=== PATIENT | male | born 2000 | race Native Hawaiian/Other Pacific Islander ===

== ENCOUNTER 2022-02-24 11:26 | Emergency (ER) | payer OTHER, SELFPAY ==
[2022-02-24 11:35] VITALS: PULSE 96; RESP 18; TEMP 36.6; O2SAT 98; BMI 27.5
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
[2022-02-24 13:54] LABS: COVID-19 Test Negative (Negative); IDNOW Serial# 16C4AD1C
[2022-02-24 13:59] LABS: Amphetamine Screen Urine Not Detected (Not Detect); Barbiturates, Urine Not Detected (Not Detect); Benzodiazepines Screen Urine Not Detected (Not Detect); Cannabinoid Screen Urine Not Detected (Not Detect); Cocaine Screen Urine Not Detected (Not Detect); Fentanyl, urine Not Detected (Not Detect); Opiate Screen Urine Not Detected (Not Detect); Phencyclidine Screen Urine Not Detected (Not Detect)
--- NOTE | 2022-02-24 17:38 | PC.NURSE ---
clients aunt who came earlier with patient, phone number [phone]
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
--- NOTE | 2022-02-25 06:39 | PC.NURSE ---
Patient slept through the night, no distress observed/reported, behavior appropriate, patient is not on any medication at this time, patient was assessed by care team with plan to discharge back to his mother, please refer to care team's note for further details, VSS, will continue to monitor.
--- NOTE | 2022-02-25 07:56 | PC.NURSE ---
patient appears to remain asleep at present respirations are even and unlabored, patient appears in no distress
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
--- NOTE | 2022-02-25 12:55 | MHC.CARE ---
Pt was informed that a referral was made to [facility]. Pt reports that his phone is not receiving any calls but can text. SW provided PT with demographic information for [facility] and Care team. Pt discharged back home.
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
== END 2022-02-25 12:44 | disposition home or self-care (01) ==
PROVIDERS: Physician Assistant; Emergency Provider Emergency Medicine
DX: F41.1 Generalized anxiety disorder (principal); F43.0 Acute stress reaction; Z79.899 Other long term (current) drug therapy; Z20.822 Contact with and (suspected) exposure to COVID-19
CPT/HCPCS: 80307; 87635; 99284

== ENCOUNTER 2023-05-19 13:52 | Emergency (ER) | payer OTHER, SELFPAY ==
--- NOTE | ~2023-05-19 | XR_ITS ---
EXAMINATION: XR ANKLE, LEFT CLINICAL INFORMATION: Fall COMPARISON: None available. TECHNIQUE: AP, lateral, and mortise views of the left ankle. FINDINGS: The bones and soft tissues are normal. No fracture. Alignment is anatomic. Joint spaces are maintained. No joint effusion.
[2023-05-19 14:00] VITALS: BP 111/72; PULSE 81; RESP 18; TEMP 36.8; O2SAT 99; BMI 28.6
[2023-05-19 14:05] VITALS: BP 110/68; PULSE 74; O2SAT 100
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
[2023-05-19 15:13] VITALS: BP 115/56; PULSE 80; RESP 17; TEMP 36.5; O2SAT 100
== END 2023-05-19 17:48 | disposition home or self-care (01) ==
PROVIDERS: Emergency Provider Emergency Medicine Emergency Medical Services
DX: S90.32XA Contusion of left foot, initial encounter (principal); S90.812A Abrasion, left foot, initial encounter; S60.511A Abrasion of right hand, initial encounter; S80.211A Abrasion, right knee, initial encounter; V28.09XA Other motorcycle driver injured in noncollision transport accident in nontraffic accident, initial encounter; Y93.89 Activity, other specified; Y92.414 Local residential or business street as the place of occurrence of the external cause; Y99.9 Unspecified external cause status
CPT/HCPCS: 73600; 90471; 90715; 99283; 99284

== ENCOUNTER 2023-10-31 17:40 | Emergency (ER) | payer OTHER, SELFPAY ==
[2023-10-31 18:05] VITALS: BP 131/94; PULSE 91; RESP 18; TEMP 36.7; O2SAT 98; BMI 26.5
--- NOTE | 2023-10-31 18:05 | ED_ITS ---
HPI - Ear Problem General Chief complaint: Ear Problems Stated complaint: RT ear wax blockage Time Seen by Provider: 10/31/23 18:11 Source: patient, RN notes reviewed and old records reviewed Mode of arrival: ambulatory History of Present Illness HPI Narrative: 23 yo M w/PMHx Asthma, ADHD, presenting to the ED complaining of right ear tinnitus x years, with some right ear discomfort and noted earwax by mother. Denies drainage from ear, fever/chills, sore throat Related Data Previous Rx's Medication Instructions Recorded amoxicillin 875 mg-potassium 1 tab PO BID 7 days #14 tabs 10/31/23 clavulanate 125 mg tablet Allergies Allergy/AdvReac Type Severity Reaction Status Date / Time No Known Allergies Allergy Verified 10/31/23 18:05 [No Known Allergies*] Review of Systems Review of Systems: Constitutional: No Fever, No Chills ENT/Mouth: + Ear Pain, +tinnitis, No Nasal Congestion, No Sinus Pain, No Hoarseness, No sore throat, No Rhinorrhea, No Swallowing Difficulty Cardiovascular: No Chest Pain, No SOB Respiratory: No Cough, No Sputum, No Wheezing Gastrointestinal: No Nausea, No Vomiting, No Abdominal pain Musculoskeletal: No joint pain, No Myalgias, No Joint Swelling Skin: No Skin Lesions, No rash Neuro: No Weakness Yes all other systems are reviewed and are negative Constitutional: Constitutional: Reports as per [facility] Past Medical History Attestation statement: The following information was validated with the patient. Source: old records reviewed Medical History Asthma ADHD Surgical History No pertinent past surgical history Family History Family History Mother No problems noted. Social History Social History Household Members: Family Physical Exam Vital Signs: Vital Signs: Last Vital Signs Temp 98.1 F 10/31/23 18:05 Pulse 91 10/31/23 18:05 Resp 18 10/31/23 18:05 BP 131/94 H 10/31/23 18:05 Pulse Ox 98 10/31/23 18:05 O2 Del Method Room Air 12/13/23 18:05 BMI result Body Mass Index 26.5 Const: General: cooperative, healthy appearing and no acute distress Orientation/consciousness: patient oriented x3 Limitations: no limitations HEENT: Head: Yes normal to inspection and Yes atraumatic Ears: hearing grossly normal bilaterally, external ears normal, mastoids normal, TM abnormal bulging on the right and erythematous on the right and other (Cerumen noted to right external ear canal) General nose exam: Normal external nose present Face and sinus: Yes normal facial exam Eyes: General: appearance normal, both eyes and all related structures EOM: EOMs intact bilaterally Neck: Neck: Yes normal visual inspection and Yes no meningeal signs Resp: Effort & Inspection: normal respiratory effort, no respiratory distress and no stridor Cardio: Rate: regular rate Skin: Rashes: no rashes Wounds: no wounds Neuro: General: patient oriented x3, tone normal and no meningeal signs Cranial nerves: Yes CN's II-XII intact bilaterally Gait exam (Neuro): Normal gait present Extrem: General: Yes normal to inspection Procedures Ear Wax Removal Right Ear: Results: Re-examined: cerumen removed completely TM Examination: TM(s) intact, normal appearance Ear Canal Exam: atraumatic Patient Tolerated Procedure: well Complications: no problems Technique: ear canal curetted Medical Decision Making Medical Decision Making MDM Narrative: 23 yo M w/PMHx Asthma, ADHD, presenting to the ED complaining of right ear tinnitus x years, with some right ear discomfort and noted earwax by mother. On exam vital signs stable, NAD, nontoxic appearing, right TM with bulging and erythema. Erect noted external ear canal without total impaction. Ear wax removed with curette without complication. Mastoids WNL. Concern for otitis media/cerumen. Low suspicion for chronic otitis externa, ICH/mass Plan: P.o. antibiotics Please refer to course for remaining clinical decision making, interpretation of labs/imaging results, and discussions with consultants and/or family members. Results discussed with patient including worrisome signs and symptoms and strict return precautions, and when to return to the emergency department. They verbalized understanding and feel safe for discharge at this time. Differential Diagnosis Differential Diagnoses: The differential diagnosis associated with the presentation includes As above External Record Review External record reviewed: Inpatient record, Office record, Outpatient record, Prior outpatient labs, Prior outpatient radiology, Primary care record and Outside ED record Tests considered The following testing was considered but not selected: As above Prescription Management I considered prescription management with: Pain Medication and Antibiotic Discharge Plan Discharge Clinical Impression: Otitis media Patient Disposition: Home, Self-Care Instructions: Ear Infection (ED) Additional Instructions: augmentin is an antibiotic please take as prescribed Follow-up with your doctor and ENT specialist Is symptoms persist or worsen return to the ED Prescriptions: New amoxicillin-pot clavulanate 875-125 mg tablet 1 tab PO BID 7 Days Qty: 14 0RF Referrals: Fernando Olivera [Physician] - Physician,Unknown J [Primary Care Provider] -
== END 2023-10-31 18:26 | disposition home or self-care (01) ==
PROVIDERS: Emergency Provider Emergency Medicine
DX: H66.91 Otitis media, unspecified, right ear (principal); H93.11 Tinnitus, right ear
CPT/HCPCS: 99282; 99283

== ENCOUNTER 2023-12-26 14:02 | Emergency (ER) | payer OTHER, SELFPAY ==
[2023-12-26 14:42] VITALS: BP 121/48; PULSE 82; RESP 18; TEMP 36.4; O2SAT 98; BMI 25.6
--- NOTE | 2023-12-26 14:43 | ED.ANIMALBIT ---
HPI - Animal Bite General Chief Complaint: Animal Bite Stated Complaint: Animal bite Time Seen by Provider: 12/26/23 22:05 Source: patient Mode of arrival: ambulatory Limitations: no limitations History of Present Illness HPI narrative: 23-year-old male presents to ED for right calf dog bite. Patient states his dog bit him middle of the night. Patient was sleepwalking and dog saw him thought was intruder and bit him in the right calf. Mother states patient does have a history of sleepwalking. Mother states dogs up-to-date with rabies Related Data Previous Rx's Medication Instructions Recorded amoxicillin 875 mg-potassium 1 tab PO BID 7 days #14 tabs 11/01/23 clavulanate 125 mg tablet amoxicillin 875 mg-potassium 1 tab PO Q12H 10 days #20 tabs 12/26/23 clavulanate 125 mg tablet Allergies Allergy/AdvReac Type Severity Reaction Status Date / Time No Known Allergies Allergy Verified 12/26/23 14:42 [No Known Allergies*] Review of Systems Review of Systems: right calf dog bite Yes all other systems are reviewed and are negative [facility] Past Medical History Medical History Asthma ADHD Surgical History No pertinent past surgical history Family History Family History Mother No problems noted. Social History Social History Household Members: Family Advance Directives: No Advance Directives Information Provided: No Physical Exam ED Vital Signs: Vital Signs - 24 hr 12/26/23 14:42 12/27/23 00:02 Temperature 97.6 F 98.6 F Pulse Rate 82 71 Respiratory Rate 18 20 Blood Pressure 121/48 L 118/64 Pulse Oximetry 98 98 Oxygen Delivery Method Room Air Room Air BMI result Body Mass Index 25.6 Const General: cooperative, healthy appearing, comfortable, no acute distress, well developed, alert, awake and Physically active Orientation/consciousness: oriented to person, oriented to place, oriented to time and patient oriented x3 HENMT Head: Yes normal to inspection, Yes No palpable skull fracture present, Yes normocephalic and Yes atraumatic Eyes General: appearance normal, both eyes and all related structures Neck Neck: Yes normal visual inspection, Yes full ROM, Yes no lymphadenopathy, Yes no meningeal signs, Yes trachea midline, Yes supple, No anterior neck swelling and No tender Chest Chest palpation & inspection: normal inspection of the chest and normal palpation of entire chest wall Resp Effort & Inspection: normal respiratory effort and able to speak in complete sentences Auscultation: clear to auscultation bilaterally Cardio Jugular venous distension: no JVD Heart sounds: S1 normal heart sound present and S2 normal heart sound present GI Inspection: Yes normal to inspection Palpation (GI): Soft to palpation, not firm, nontender, no guarding and not rigid General: Yes no CVA tenderness Back/Spine/Pelvis Back: no CVA tenderness and No back tenderness Skin General skin exam: no rashes or lesions noted, elasticity normal and turgor normal Neuro General: oriented to person, oriented to place, oriented to time, patient oriented x3, gait normal, tone normal, moves all extremities, Normal light touch and pain sensation, no meningeal signs, no focal motor deficits, CN's II-XI intact bilaterally and normal sensation to monofilament Extrem General: Yes normal to inspection, Yes full ROM and Yes capillary refill normal Knee images: 1. Small bite. Negative for active bleeding. Rest of extremity normal. Odor/neuro/vascular exam intact. Psych Appearance: grossly normal, well kempt and not disheveled Course Course Course Narrative: RME:?23 year old male here with dog bite to right calf occurring last night. states his dog bit his right calf while he was having a night terror. Dog is adopted, unsure of vaccine status however will call mom to try and obtain information. no symptoms at the time. plan for irrigation, rabies vaccine, abx Full HPI, ROS and PE to be performed by the primary ED provider. Medical Decision Making Medical Decision Making MDM Narrative: 23 Yold male with Dog bite to right calf. his dog bit him. Dog uptodate with rabies. Patient educated on necessity for antibiotics. Patient discharged antibiotics. Patient given information for sleep Medicine with [facility] for follow-up. Patient and mother informed to return to the ED immediately if there is any swelling, redness, pus discharge, foul odor, fever, or chills. Patient explained worrisome sign. No indication for rabies vaccine Differential Diagnosis Differential Diagnoses: The differential diagnosis associated with the presentation includes (Dog bite) Admission/Observation Consideration of admission/observation: Escalation of care including admission/observation considered Independent Historian Clinical information obtained from an independent historian. History obtained from or confirmed by: Parent (Mother) External Record Review External record reviewed: Other (Previous visit) Prescription Management I considered prescription management with: Pain Medication Discharge Plan Discharge Clinical Impression: Dog bite Patient Disposition: Home, Self-Care Instructions: Animal Bite (ED) Additional Instructions: Return to the ED for any redness, swelling, pus discharge, foul odor, fever, chills, or any other concerning symptoms. Please follow-up with primary care provider. [facility] Sleep Medicine [facility], [address] [place], [place] [id number] [phone]. For sleep walking Prescriptions: New amoxicillin-pot clavulanate 875-125 mg tablet 1 tab PO Q12H 10 Days Qty: 20 0RF No Action amoxicillin-pot clavulanate 875-125 mg tablet 1 tab PO BID 7 Days Qty: 14 0RF Stand Alone Forms: Work/School Release Interventions: ED Discharge Assessment Last Done: 12/27/23 00:06 Discharge Date/Time: 12/27/23 00:07 Print Language: [place]
--- NOTE | 2023-12-26 22:22 | PC.NURSE ---
pt refused to give information about the dog in fear of dog being put down. Claudia nelson RN called to bedside and able to reassure pt.
[2023-12-27 00:02] VITALS: BP 118/64; PULSE 71; RESP 20; TEMP 37; O2SAT 98
== END 2023-12-27 00:07 | disposition home or self-care (01) ==
PROVIDERS: Emergency Provider Student in an Organized Health Care Education/Training Program
DX: S81.851A Open bite, right lower leg, initial encounter (principal); W54.0XXA Bitten by dog, initial encounter; Y93.89 Activity, other specified; Y92.019 Unspecified place in single-family (private) house as the place of occurrence of the external cause; Y99.9 Unspecified external cause status
CPT/HCPCS: 99283; 99284

== ENCOUNTER 2024-01-21 14:30 | Emergency (ER) | payer OTHER, SELFPAY ==
--- NOTE | ~2024-01-21 | CT_ITS ---
EXAMINATION: CT ABDOMEN AND PELVIS WITHOUT CONTRAST CLINICAL INFORMATION: Abdominal pain radiating to back COMPARISON: None available. TECHNIQUE: Multidetector volumetric imaging was performed from the superior aspect of the liver through the pubic symphysis. Sagittal and coronal reformatted images were obtained on the technologist's workstation. This CT examination was performed using dose optimization techniques as appropriate, variously including the following: *Automated exposure control *Adjustment of mA and/or kV according to patient size (this includes techniques or standardized protocols for targeted exams where dose is matched to indication/reason for exam; i.e. extremities or head) *Use of iterative reconstruction technique DLP: 429 mGy-cm FINDINGS: LUNG BASES: The visualized lung bases are unremarkable. LIVER, GALLBLADDER, AND BILIARY TREE: The liver is normal in size, shape, and attenuation. No focal hepatic lesion or biliary ductal dilatation is present. The gallbladder is unremarkable with no evidence of radiopaque gallstones, gallbladder wall thickening, or obvious pericholecystic inflammatory changes. PANCREAS: Unremarkable. SPLEEN: Unremarkable. ADRENAL GLANDS: Unremarkable. KIDNEYS AND URETERS: The kidneys are normal in size, shape, and attenuation. No hydronephrosis, hydroureter, or calculi seen. No perinephric stranding. BLADDER: Unremarkable. GASTROINTESTINAL TRACT: The small and large bowel are unremarkable. The appendix is unremarkable. ABDOMINAL WALL: No significant hernia is appreciated. LYMPH NODES: Normal. VASCULAR: Unremarkable. PELVIC VISCERA: Unremarkable. OSSEOUS STRUCTURES: Unremarkable. CT/CT abdomen pelvis wo IV con IMPRESSION: No significant abnormality. Fleischner guidelines were followed.
[2024-01-21 14:53] VITALS: BP 121/62; PULSE 87; RESP 17; TEMP 36.6; O2SAT 98; BMI 26.6
--- NOTE | 2024-01-21 14:54 | ED.ABDPAIN ---
HPI - Abdominal Pain General Chief Complaint: Abdominal Pain Stated Complaint: L flank pain Time Seen by Provider: 01/21/24 19:39 Source: patient Mode of arrival: ambulatory Limitations: no limitations History of Present Illness HPI narrative: Patient is a 23-year-old male who presents emergency department for evaluation of abdominal pain/back pain. Reports occasional dull aching pain at times felt to the left abdomen other times to the right and at various places amongst his back. Typically lasting a few minutes at a time before self-resolving. He expresses significant anxiety and concern that he may have cancer as his grandmother was recently diagnosed with pancreatic cancer. He denies any associated fevers, chills, nausea, vomiting, chest pain, shortness of breath, recent unintentional weight loss, constipation, diarrhea, genitourinary symptoms, any recent injury. Related Data Previous Rx's Medication Instructions Recorded amoxicillin 875 mg-potassium 1 tab PO BID 7 days #14 tabs 11/01/23 clavulanate 125 mg tablet amoxicillin 875 mg-potassium 1 tab PO Q12H 10 days #20 tabs 12/26/23 clavulanate 125 mg tablet Allergies Allergy/AdvReac Type Severity Reaction Status Date / Time No Known Allergies Allergy Verified 01/21/24 14:53 [No Known Allergies*] Review of Systems Review of Systems Yes all other systems are reviewed and are negative PMFSH Past Medical History Attestation statement: The following information was validated with the patient. Source: old records reviewed Medical History Asthma ADHD Surgical History No pertinent past surgical history Family History Family History Mother No problems noted. Social History Social History Household Members: Family Advance Directives: No Advance Directives Information Provided: No Physical Exam ED Vital Signs: Vital Signs - 24 hr 01/21/24 14:53 01/21/24 19:35 Temperature 98 F 98.1 F Pulse Rate 87 70 Respiratory Rate 17 17 Blood Pressure 121/62 110/63 Pulse Oximetry 98 98 Oxygen Delivery Method Room Air Room Air BMI result Body Mass Index 26.6 Appearance: Alert.?Oriented to person, place and time. No acute distress.?Normal affect. Eyes: Pupils equal, round and reactive to light.? ENT: Pharynx normal.?? Neck: Normal inspection.? Neck supple.?? CVS: Heart sounds normal. Normal heart rate and rhythm.? Pulses normal.?? Respiratory: No respiratory distress.? Lung sounds clear to auscultation bilaterally?? Abdomen: Soft and non-tender. Normoactive bowel sounds. No pulsatile mass.??No CVA tenderness Skin: Skin warm and dry.? Normal skin color.? Normal skin turgor.?? Extremities: No lower extremity edema.? No calf ttp? Neuro: Moves all extremities spontaneously. Sensation intact bilaterally. CN II-XII intact. No focal neuro deficits. Ambulates with normal steady gait. Course Course Course Narrative: RME-18:40pm - 23-year-old male presenting to the ER with complaints of abdominal pain radiating to the back. He is very anxious about this. Reports that he is paranoid for cancer. Reports that his grandmother had pancreatic cancer. He denies any other symptoms related to this. Plan: Labs, UA and a CT scan abdomen pelvis with IV contrast ordered at this time. Patient will be sent back to the waiting room to be evaluated in the ED. Medical Decision Making Medical Decision Making MDM Narrative: Patient is a 23-year-old male presenting to emergency department for evaluation of episodic dull aching abdominal/back pain. Currently is asymptomatic. Abdominal examination is benign. Overall he appears well, nontoxic, afebrile, no tachycardia. No respiratory distress. CBC is without leukocytosis or anemia. CMP is overall unremarkable no MARTÍNEZ or electrolyte derangement, lipase within normal limits. Urinalysis is without evidence of infection or microscopic hematuria. A CT scan of the abdomen and pelvis was obtained prior to my assumption of care which is without acute pathology. At this time feel that he is stable for discharge home and outpatient follow-up with PCP. Discussed return precautions. All questions answered. Differential Diagnosis Differential Diagnoses: The differential diagnosis associated with the presentation includes (Cholecystitis, pancreatitis, colitis, diverticulitis, hydronephrosis, renal colic) Admission/Observation Consideration of admission/observation: Escalation of care including admission/observation considered (See narrative above) Lab Data MDM Lab Attestation statement: I reviewed the patient's lab results. (See narrative above) 01/21/24 19:15 01/21/24 19:15 Labs: Lab Results 01/21/24 Range/Units 19:15 WBC 5.7 (4.8-10.8) X10*3/uL RBC 5.27 (4.60-5.80) X10*6/uL Hgb 14.1 (14.0-18.0) g/dl Hct 43.1 (42.0-52.0) % MCV 81.8 (80.0-98.0) fL MCH 26.8 L (27.0-33.0) pg MCHC 32.7 (31.0-36.0) g/dl RDW 13.0 (11.0-16.0) % Plt Count 205 (160-400) X10*3/uL MPV 11.1 (9.4-12.4) fL Immature Gran % (Auto) 0.2 (0.0-0.4) % Neut % (Auto) 45.8 (45-73) % Lymph % (Auto) 44.5 H (20-40) % [place] % (Auto) 8.0 (2-11) % Eos % (Auto) 1.1 (0-4) % Baso % (Auto) 0.4 (0-2) % Lymph # (Auto) 2.5 (1.2-4.9) X10*3/uL [place] # (Auto) 0.5 (0.1-1.2) X10*3/uL Eos # (Auto) 0.1 (0.0-0.4) X10*3/uL Baso # (Auto) 0.0 (0.0-0.2) X10*3/uL Abs Immat Gran (auto) 0.01 (0.00-0.03) X10*3/uL Absolute Neuts (auto) 2.6 (2.0-8.3) x10*3/uL Absolute Nucleated RBC 0.000 (0.0-0.012) X10*3/uL Nucleated RBC % (auto) 0.0 (0.0-0.2) /100WBC Sodium 141 (135-145) mmol/L Potassium 3.9 (3.3-5.1) mmol/L Chloride 104 (96-108) mmol/L Carbon Dioxide 28 (22-29) mmol/L Anion Gap 13 (12-20) BUN 12 (9-16) mg/dL Creatinine 0.89 (0.5-1.4) mg/dL Estim Creat Clear Calc 122.7 Estimated GFR > 60 Random Glucose 87 (60-115) mg/dL Calcium 9.8 (8.4-10.2) mg/dL Magnesium 2.2 (1.6-2.6) mg/dL Total Bilirubin 1.1 H (0.0-1.0) mg/dL Direct Bilirubin 0.3 (0.0-0.5) mg/dL AST 25 (5-37) U/L ALT 26 (0-40) U/L Alkaline Phosphatase 119 H (39-117) U/L Total Protein 7.8 (6.5-8.0) g/dL Albumin 4.8 (3.5-5.0) g/dL Lipase 27 (8-78) U/L Urine Color Dark Yellow Urine Appearance Clear Urine pH 5.5 (5.0-9.0) Ur Specific Terry >= 1.030 H (1.005-1.025) Urine Protein Trace (Neg-Trace) mg/dL Urine Glucose (UA) Negative (Negative) mg/dL Urine Ketones Trace (Negative) mg/dL Urine Blood Negative (Negative) Urine Nitrite Negative (Negative) Ur Leukocyte Esterase Negative (Negative) Radiology Impression Discussion of test interpretation with radiology: I have reviewed the radiologist's reading. Radiologist Impression: CT/CT abdomen pelvis wo IV con IMPRESSION: No significant abnormality. Fleischner guidelines were followed. Prescription Management I considered prescription management with: Pain Medication (Acetaminophen/ibuprofen) Discharge Plan Discharge Clinical Impression: Abdominal pain Patient Disposition: Home, Self-Care Instructions: Abdominal Pain (ED) Additional Instructions: You can take ibuprofen 200 mg, 3 tablets (600mg) every 6-8 hours as needed for pain, in addition to Tylenol 500 mg, 2 tablets (1,000mg) every 4-6 hours as needed for pain, but not to exceed 3 doses daily (3,000mg).? Follow-up with the primary care doctor for symptoms that persist. Return back to emergency department with any new or worsening symptoms or concerns Prescriptions: No Action amoxicillin-pot clavulanate 875-125 mg tablet 1 tab PO BID 7 Days Qty: 14 0RF amoxicillin-pot clavulanate 875-125 mg tablet 1 tab PO Q12H 10 Days Qty: 20 0RF Referrals: Physician,None [Primary Care Provider] -
--- NOTE | 2024-01-21 19:17 | MHC.EDTECH ---
Patient brought into triage area,labs,and a urine obtained and sent to lab.
[2024-01-21 19:22] LABS: MANUAL DIFF FLAG NO
[2024-01-21 19:23] LABS: Basophils Percent Auto 0.4 % (0-2); Eosinophils Absolute Auto 0.1 X10*3/uL (0.0-0.4); Eosinophils Percent Auto 1.1 % (0-4); Hematocrit 43.1 % (42.0-52.0); Hemoglobin 14.1 g/dl (14.0-18.0); Imm Gran Abs Auto 0.01 X10*3/uL (0.00-0.03); Imm Gran Pct Auto 0.2 % (0.0-0.4); Lymphocytes Absolute Auto 2.5 X10*3/uL (1.2-4.9); Lymphocytes Percent Auto 44.5 % (20-40); Mean Corpuscular HGB Conc 32.7 g/dl (31.0-36.0); Mean Corpuscular Hemoglobin 26.8 pg (27.0-33.0); Mean Corpuscular Volume 81.8 fL (80.0-98.0); Mean Platelet Volume 11.1 fL (9.4-12.4); Monocytes Absolute Auto 0.5 X10*3/uL (0.1-1.2); Neutrophils Absolute Auto 2.6 x10*3/uL (2.0-8.3); Neutrophils Percent Auto 45.8 % (45-73); Platelet Count 205 X10*3/uL (160-400); Red Blood Count 5.27 X10*6/uL (4.60-5.80); White Blood Count 5.7 X10*3/uL (4.8-10.8)
[2024-01-21 19:25] LABS: Appearance Urine Clear; Color Urine Dark Yellow; Glucose Urine UA Negative (Negative); Leukocyte Esterase Urine Negative (Negative); Nitrite Urine Negative (Negative); PH 5.5 (5.0-9.0); Specific Gravity - Urine >= 1.030 (1.005-1.025); Urine Blood Negative (Negative); Urine Ketones Trace mg/dL (Negative); Urine Protein Trace mg/dL (Neg-Trace)
[2024-01-21 19:35] VITALS: BP 110/63; PULSE 70; RESP 17; TEMP 36.7; O2SAT 98
[2024-01-21 19:39] LABS: Alanine Aminotransferase 26 U/L (0-40); Albumin Level 4.8 g/dL (3.5-5.0); Alkaline Phosphatase 119 U/L (39-117); Anion Gap 13 (12-20); Aspartate Amino Transferase 25 U/L (5-37); Bilirubin Direct 0.3 mg/dL (0.0-0.5); Bilirubin Total 1.1 mg/dL (0.0-1.0); Blood Urea Nitrogen 12 mg/dL (9-16); Calcium 9.8 mg/dL (8.4-10.2); Carbon Dioxide 28 mmol/L (22-29); Chloride 104 mmol/L (96-108); Creatinine Clr Calc Pharmacy 122.7; Estimated Glomerular Filt Rate > 60; Glucose Random 87 mg/dL (60-115); Lipase 27 U/L (8-78); Magnesium 2.2 mg/dL (1.6-2.6); Potassium 3.9 mmol/L (3.3-5.1); Sodium 141 mmol/L (135-145); Total Protein 7.8 g/dL (6.5-8.0)
== END 2024-01-21 20:34 | disposition home or self-care (01) ==
PROVIDERS: Physician Assistant Medical; Emergency Provider Emergency Medicine
DX: R10.9 Unspecified abdominal pain (principal); M54.9 Dorsalgia, unspecified
CPT/HCPCS: 36415; 74176; 80053; 81003; 82248; 83690; 83735; 85025; 99283; 99284

== ENCOUNTER 2024-06-19 22:12 | Emergency (ER) | payer OTHER, SELFPAY ==
[2024-06-19 22:18] VITALS: BP 124/66; PULSE 90; O2SAT 99
[2024-06-19 22:22] VITALS: BP 148/77; PULSE 68; RESP 22; TEMP 37.2; O2SAT 99; BMI 26.6
--- NOTE | 2024-06-19 22:28 | ED_ITS ---
HPI - Anxiety General Chief Complaint: Anxiety Stated Complaint: anxiety Time Seen by Provider: 06/19/24 22:17 Source: patient and EMS Mode of arrival: EMS Limitations: no limitations History of Present Illness ED Provider: DEREK RAY narrative: 24 yo male with PMH of recent anxiety due to life stressors or social pressures notes panic attack tonight with sense of impending doom and hyperventilation with EMS resulting in carpopedal spasms and abdominal spasms. He denies recent n/v/d viral illness cramps prior to this. He does not take medications. MD complaint: anxiety Onset (ago): hour(s) (1) Symptoms: extremity numbness/tingling, perioral numbness/tingling, sense of impending doom and muscle cramps Severity: severe Quality: constant Place: home History of similar episodes: Yes Provoking factors: emotional stress and work/job stress Relieving factors: nothing Exacerbating factors: thinking about event Associated symptoms: denies other symptoms Related Data Previous Rx's ?Medication ?Instructions ?Recorded amoxicillin 875 mg-potassium 1 tab PO BID 7 days #14 tabs 11/01/23 clavulanate 125 mg tablet amoxicillin 875 mg-potassium 1 tab PO Q12H 10 days #20 tabs 12/26/23 clavulanate 125 mg tablet hydroxyzine HCl 25 mg tablet 25 mg PO TID PRN anxiety #30 tabs 06/19/24 Allergies Allergy/AdvReac Type Severity Reaction Status Date / Time No Known Allergies Allergy Verified 06/19/24 22:30 [No Known Allergies*] Review of Systems Review of Systems: Constitutional : No Fever, No Chills ENT/Mouth : No Ear Pain, No Nasal Congestion, No sore throat Eyes: No Eye Pain, No Swelling, No Redness Cardiovascular : No Chest Pain, No SOB Respiratory : No Cough, No Sputum, No Dyspnea Gastrointestinal : No Nausea, No Vomiting, No Diarrhea, No Hematochezia, No Melena Genitourinary : No Dysuria, No Urinary Frequency, No Hematuria Musculoskeletal : No Myalgias, pos spasms Skin : No Skin Lesions, No rash Neuro : No Weakness, No Numbness, No Paresthesias, No Dizziness, No Headache Psych : positive Anxiety, positive Depression, no SI/HI All other systems reviewed and are negative [facility] Past Medical History Medical History Asthma ADHD Surgical History No pertinent past surgical history Family History Family History Mother No problems noted. Social History Social History Household Members: Family Smoked in Last 30 Days: No Use of substances other than those prescribed or required for medical reasons: No Advance Directives: No Advance Directives Information Provided: No Physical Exam Vital Signs: Vital Signs: Last Vital Signs Temp 98.9 F 06/19/24 22:22 Pulse 68 06/19/24 22:22 Resp 22 H 06/19/24 22:22 BP 148/77 H 06/19/24 22:22 Pulse Ox 99 06/19/24 22:22 O2 Del Method Room Air 06/19/24 22:22 BMI result Body Mass Index 26.6 Appearance: Alert. Oriented X3. No acute distress. anxious hyperventilating improving carpopedal spasms Eyes: Pupils equal, round and reactive to light. ENT: Pharynx normal. Neck: Normal inspection. Neck supple. CVS: Normal heart rate and rhythm. Pulses normal. Respiratory: No respiratory distress. Breath sounds normal. Abdomen: Soft and nontender. Skin: Skin warm and dry. Normal skin color. Normal skin turgor. Extremities: No lower extremity edema. No calf ttp Neuro: Oriented X 3. No motor deficit. No sensory deficit. Medications Administered Discontinued Medications Generic Name Dose Route Start Last Admin Trade Name Freq PRN Reason Stop Dose Admin Hydroxyzine HCl 50 mg 06/19/24 22:28 06/19/24 22:39 Hydroxyzine Hcl 50 Mg Tablet PO 06/19/24 22:29 50 mg ONCE ONE Administration Medical Decision Making Medical Decision Making MDM Narrative: 24 yo male with PMH of recent anxiety here with panic attack and hyperventilation - carpopedal spasms. No SI. He is improving no recent cramps n/v/d or suspicion he would have lyte abnormality. At this time PO atarax and DC home Differential Diagnosis Differential Diagnoses: The differential diagnosis associated with the presentation includes anxiety, panic attack Admission/Observation Consideration of admission/observation: Escalation of care including admission/observation considered improved stable for DC Independent Historian Clinical information obtained from an independent historian. History obtained from or confirmed by: EMS Prescription Management I considered prescription management with: Other Discharge Plan Discharge Clinical Impression: Panic disorder Patient Disposition: Home, Self-Care Instructions: Panic Attack (ED) Additional Instructions: return for worsening symptoms or concerns stay hydrated, rest and take care of yourself can follow up with [facility] counseling for any worsening symptoms or concerns - therapy [phone] Prescriptions: New hydroxyzine HCl 25 mg tablet 25 mg PO TID PRN (Reason: anxiety) Qty: 30 0RF No Action amoxicillin-pot clavulanate 875-125 mg tablet 1 tab PO BID 7 Days Qty: 14 0RF amoxicillin-pot clavulanate 875-125 mg tablet 1 tab PO Q12H 10 Days Qty: 20 0RF Stand Alone Forms: Work/School Release Print Language: [place]
[2024-06-19] MEDS: hydrOXYzine HCL 50 MG TABLET PO (22:39)
[2024-06-19 23:31] VITALS: BP 148/77; PULSE 68; RESP 22; TEMP 37.2; O2SAT 99
== END 2024-06-19 23:32 | disposition home or self-care (01) ==
PROVIDERS: Emergency Provider Emergency Medicine
DX: F41.0 Panic disorder [episodic paroxysmal anxiety] (principal)
CPT/HCPCS: 99283; 99284

== ENCOUNTER 2024-09-12 18:14 | Emergency (ER) | payer OTHER, SELFPAY ==
--- NOTE | ~2024-09-12 | XR_ITS ---
EXAMINATION: XR ABDOMEN KUB CLINICAL INDICATION: Pain. COMPARISON: CT abdomen/pelvis 01/21/2024. TECHNIQUE: AP view of the abdomen. FINDINGS: Limited evaluation as the uppermost abdomen was not included within the field of view. Within limitations, nonobstructive bowel gas pattern with moderate degree of colonic stool burden. No unusual soft tissue calcifications. No acute osseous findings. XR/XR KUB IMPRESSION: Nonobstructive bowel gas pattern. Moderate colonic stool burden. Electronically signed by: Carol Desir MD 09/12/2024 10:00 PM EDT
[2024-09-12 18:46] VITALS: BP 113/71; PULSE 84; RESP 16; TEMP 36.9; O2SAT 98; BMI 25.8
--- NOTE | 2024-09-12 18:46 | ED_ITS ---
HPI - Abdominal Pain General Chief Complaint: Abdominal Pain Stated Complaint: ?UTI Time Seen by Provider: 09/12/24 19:53 Source: patient Limitations: no limitations History of Present Illness ED Provider: Elena Lincoln PA-C HPI narrative: 24-year-old otherwise healthy male presents with left-sided abdominal pain x1 week. Pain primarily over left mid to lower abdomen wraps around anteriorly, unable to describe the nature of his discomfort, but states ?it is just not right?. Denies nausea, vomiting, fever. Associated foul-smelling urine, however denies dysuria, hematuria, penile discharge, testicular pain or swelling. Patient has no risk for STD, he is abstinent. Patient does admit that he struggles with constipation. Unclear when his last full bowel movement was. Related Data Previous Rx's ?Medication ?Instructions ?Recorded amoxicillin 875 mg-potassium 1 tab PO BID 7 days #14 tabs 11/01/23 clavulanate 125 mg tablet amoxicillin 875 mg-potassium 1 tab PO Q12H 10 days #20 tabs 12/26/23 clavulanate 125 mg tablet hydroxyzine HCl 25 mg tablet 25 mg PO TID PRN anxiety #30 tabs 06/19/24 docusate sodium 100 mg capsule 100 mg PO BID #30 caps 09/12/24 (Colace) polyethylene glycol 3350 17 gram See Rx Instructions .Route 09/12/24 oral powder packet (Miralax) .COMPLEX #30 ea Allergies Allergy/AdvReac Type Severity Reaction Status Date / Time No Known Allergies Allergy Verified 09/12/24 18:48 [No Known Allergies*] Review of Systems Review of Systems Yes all other systems are reviewed and are negative Constitutional: Denies fatigue and Denies fever(s) Cardiovascular: Denies chest pain and Denies dyspnea Respiratory: Denies dyspnea Gastrointestinal: Reports abdominal pain, Reports constipation, Denies nausea and Denies vomiting Genitourinary: Denies dysuria and Denies scrotal swelling Endocrine: Denies fatigue PMFSH Past Medical History Attestation statement: The following information was validated with the patient. Medical History Asthma ADHD Surgical History No pertinent past surgical history Family History Family History Mother No problems noted. Social History Social History Household Members: Family Advance Directives: No Advance Directives Information Provided: No Physical Exam ED Vital Signs: Vital Signs - 24 hr 09/12/24 18:46 09/12/24 19:43 Temperature 98.5 F 98.1 F Pulse Rate 84 77 Respiratory Rate 16 18 Blood Pressure 113/71 108/60 Pulse Oximetry 98 99 Oxygen Delivery Method Room Air Room Air BMI result Body Mass Index 25.8 Const Other: Alert, overall well in appearance Orientation/consciousness: patient oriented x3 Resp Other: Nonlabored respiration Cardio Other: Normal peripheral perfusion GI Other: Abdomen is soft, nondistended, nontender no guarding Skin Other: Warm dry no rash Neuro General: patient oriented x3, no focal motor deficits and CN's II-XI intact bilaterally Psych Other: Calm cooperative Course Course Course Narrative: This is an RME performed by Monet Patricia CNP: Additional HPI, ROS, PE not included below will be deferred to primary provider. Patient is a 24-year-old male presents emergency department for evaluation he is experiencing left lower quadrant abdominal pain that radiates along the lateral aspect into the back also with pain to the left groin, urinary frequency and noticing an odor to the urine. Onset was approximately 1.5 weeks ago. Denies nausea, vomiting, diarrhea, constipation, fevers, chills. Medical Decision Making Medical Decision Making [facility] Narrative: 24-year-old otherwise healthy male presents with left-sided abdominal pain x1 week. Pain primarily over left mid to lower abdomen wraps around anteriorly, unable to describe the nature of his discomfort, but states ?it is just not right?. Denies nausea, vomiting, fever. Associated foul-smelling urine, however denies dysuria, hematuria, penile discharge, testicular pain or swelling. Patient has no risk for STD, he is abstinent. Patient does admit that he struggles with constipation. Unclear when his last full bowel movement was. Problem: Constipation History: Per patient I have considered the following differential diagnoses: Constipation, bowel obstruction, diverticulitis, renal colic, UTI, STD, urethritis Plan: In regard to abdominal pain, this is like the patient's constipation, his exam was benign and he has no active nausea, vomiting or diarrhea. We will obtain a KUB. Thought about diverticulitis given left-sided symptoms, however again, there was no focal pain on exam, and he is not having active GI symptoms. To note screening labs were already obtained from triage. In regard to his urinary symptoms, urinalysis complete it is not infected. He has no risk factors for STD, however GC chlamydia was already in process. He has no signs symptoms for urethritis or infection of the testes. Scrotal ultrasound not indicated. I have independently reviewed the following tests: Labs: No leukocytosis, not anemic, no electrolyte abnormality, urine not infected, GC chlamydia pending KUB: Significant stool burden Lab Data 09/12/24 19:08 09/12/24 19:08 Labs: Lab Results 09/12/24 09/12/24 Range/Units 19:08 19:42 WBC 5.7 (4.8-10.8) X10*3/uL RBC 5.20 (4.60-5.80) X10*6/uL Hgb 14.1 (14.0-18.0) g/dl Hct 42.7 (42.0-52.0) % MCV 82.1 (80.0-98.0) fL MCH 27.1 (27.0-33.0) pg MCHC 33.0 (31.0-36.0) g/dl RDW 13.1 (11.0-16.0) % Plt Count 202 (160-400) X10*3/uL MPV 11.0 (9.4-12.4) fL Immature Gran % (Auto) 0.2 (0.0-0.4) % Neut % (Auto) 54.5 (45-73) % Lymph % (Auto) 36.6 (20-40) % Walton % (Auto) 6.9 (2-11) % Eos % (Auto) 1.4 (0-4) % Baso % (Auto) 0.4 (0-2) % Lymph # (Auto) 2.1 (1.2-4.9) X10*3/uL Walton # (Auto) 0.4 (0.1-1.2) X10*3/uL Eos # (Auto) 0.1 (0.0-0.4) X10*3/uL Baso # (Auto) 0.0 (0.0-0.2) X10*3/uL Abs Immat Gran (auto) 0.01 (0.00-0.03) X10*3/uL Absolute Neuts (auto) 3.1 (2.0-8.3) x10*3/uL Absolute Nucleated RBC 0.000 (0.0-0.012) X10*3/uL Nucleated RBC % (auto) 0.0 (0.0-0.2) /100WBC Sodium 140 (135-145) mmol/L Potassium 4.1 (3.3-5.1) mmol/L Chloride 105 (96-108) mmol/L Carbon Dioxide 26 (22-29) mmol/L Anion Gap 13 (12-20) BUN 15 (9-16) mg/dL Creatinine 1.05 (0.5-1.4) mg/dL Estim Creat Clear Calc 103.1 Estimated GFR > 60 Random Glucose 90 (60-115) mg/dL Calcium 10.1 (8.4-10.2) mg/dL Total Bilirubin 0.9 (0.0-1.0) mg/dL AST 39 H (5-37) U/L ALT 46 H (0-40) U/L Alkaline Phosphatase 105 (39-117) U/L Total Protein 7.6 (6.5-8.0) g/dL Albumin 4.8 (3.5-5.0) g/dL Lipase 27 (8-78) U/L Urine Color Yellow Urine Appearance Clear Urine pH 5.5 (5.0-9.0) Ur Specific [place] 1.020 (1.005-1.025) Urine Protein Negative (Neg-Trace) mg/dL Urine Glucose (UA) Negative (Negative) mg/dL Urine Ketones Negative (Negative) mg/dL Urine Blood Negative (Negative) Urine Nitrite Negative (Negative) Ur Leukocyte Esterase Negative (Negative) Discharge Plan Discharge Clinical Impression: Constipation Patient Disposition: Home, Self-Care Instructions: Constipation (ED) Additional Instructions: All of your labs were normal, your urine is not infected. You were constipated. See home care instructions. Use the Colace, this is a stool softener, take it twice a day. Use the MiraLax, mix the powder per package instructions, and drink the liquid every hour, until you begin having multiple large volume bowel movements. Once you have cleared your current stool burden, you need to stay on the MiraLax perhaps 1 to 2 times a week, and the Colace daily. Follow up with your primary care provider as needed. Prescriptions: New docusate sodium [Colace] 100 mg capsule 100 mg PO BID Qty: 30 0RF polyethylene glycol 3350 [Miralax] 17 gram powder in packet See Rx Instructions .ROUTE .COMPLEX Qty: 30 0RF Rx Instructions: 17 g orally, mixed per package instructions with water, consume the liquid every hour until you begin having multiple large volume bowel movements. No Action amoxicillin-pot clavulanate 875-125 mg tablet 1 tab PO BID 7 Days Qty: 14 0RF hydroxyzine HCl 25 mg tablet 25 mg PO TID PRN (Reason: anxiety) Qty: 30 0RF amoxicillin-pot clavulanate 875-125 mg tablet 1 tab PO Q12H 10 Days Qty: 20 0RF Print Language: Nepali
[2024-09-12 19:18] LABS: MANUAL DIFF FLAG NO
[2024-09-12 19:26] LABS: Basophils Percent Auto 0.4 % (0-2); Eosinophils Absolute Auto 0.1 X10*3/uL (0.0-0.4); Eosinophils Percent Auto 1.4 % (0-4); Hematocrit 42.7 % (42.0-52.0); Hemoglobin 14.1 g/dl (14.0-18.0); Imm Gran Abs Auto 0.01 X10*3/uL (0.00-0.03); Imm Gran Pct Auto 0.2 % (0.0-0.4); Lymphocytes Absolute Auto 2.1 X10*3/uL (1.2-4.9); Lymphocytes Percent Auto 36.6 % (20-40); Mean Corpuscular Hemoglobin 27.1 pg (27.0-33.0); Mean Corpuscular Volume 82.1 fL (80.0-98.0); Monocytes Absolute Auto 0.4 X10*3/uL (0.1-1.2); Monocytes Percent Auto 6.9 % (2-11); Neutrophils Absolute Auto 3.1 x10*3/uL (2.0-8.3); Neutrophils Percent Auto 54.5 % (45-73); Platelet Count 202 X10*3/uL (160-400); Red Cell Distribution Width 13.1 % (11.0-16.0); White Blood Count 5.7 X10*3/uL (4.8-10.8)
[2024-09-12 19:32] LABS: Alanine Aminotransferase 46 U/L (0-40); Albumin Level 4.8 g/dL (3.5-5.0); Alkaline Phosphatase 105 U/L (39-117); Anion Gap 13 (12-20); Aspartate Amino Transferase 39 U/L (5-37); Bilirubin Total 0.9 mg/dL (0.0-1.0); Blood Urea Nitrogen 15 mg/dL (9-16); Calcium 10.1 mg/dL (8.4-10.2); Carbon Dioxide 26 mmol/L (22-29); Chloride 105 mmol/L (96-108); Creatinine Clr Calc Pharmacy 103.1; Estimated Glomerular Filt Rate > 60; Glucose Random 90 mg/dL (60-115); Lipase 27 U/L (8-78); Potassium 4.1 mmol/L (3.3-5.1); Sodium 140 mmol/L (135-145); Total Protein 7.6 g/dL (6.5-8.0)
[2024-09-12 19:43] VITALS: BP 108/60; PULSE 77; RESP 18; TEMP 36.7; O2SAT 99
[2024-09-12 19:50] LABS: Appearance Urine Clear; Color Urine Yellow; Glucose Urine UA Negative (Negative); Leukocyte Esterase Urine Negative (Negative); Nitrite Urine Negative (Negative); PH 5.5 (5.0-9.0); Urine Blood Negative (Negative); Urine Ketones Negative (Negative); Urine Protein Negative (Neg-Trace)
[2024-09-12 21:45] VITALS: BP 118/79; PULSE 71; RESP 18; TEMP 36.6; O2SAT 99
[2024-09-13 11:02] LABS: CT PCR NOT DETECTED (Not Detect.); NG PCR NOT DETECTED (Not Detect.)
== END 2024-09-12 21:46 | disposition home or self-care (01) ==
PROVIDERS: Nurse Practitioner Family; Emergency Provider Emergency Medicine
DX: K59.00 Constipation, unspecified (principal); R10.2 Pelvic and perineal pain; R10.32 Left lower quadrant pain; Z79.899 Other long term (current) drug therapy; Z20.2 Contact with and (suspected) exposure to infections with a predominantly sexual mode of transmission
CPT/HCPCS: 36415; 74018; 80053; 81003; 83690; 85025; 87491; 87591; 99283

== ENCOUNTER → 2024-11-03 13:31 | Outpatient (BNVA) | payer OTHER, SELFPAY | PROVIDERS: PCP Internal Medicine; Visit Provider Internal Medicine | DX: Z00.00 Encounter for general adult medical examination without abnormal findings (principal); J45.909 Unspecified asthma, uncomplicated; F90.9 Attention-deficit hyperactivity disorder, unspecified type; F91.3 Oppositional defiant disorder; K59.00 Constipation, unspecified | CPT/HCPCS: 96127; 99385 ==

== ENCOUNTER 2024-11-03 13:48 | Outpatient (AMB) | payer OTHER, SELFPAY ==
--- NOTE | 2024-11-03 13:55 | MHC.PC.OV ---
Vital Signs 11/03/24 13:57 Height 5 ft 7.5 in Weight 158 lb BMI 24.4 BP 120/64 Blood Pressure Location Lt brachial Position Sitting Pulse 70 Pulse Source Pulse Oximeter Pulse Oximetry (%) 97 Oxygen Delivery Method Room Air Intake Visit Reasons: establish care/ [facility] Intake Note: Patient is a new patient here to establish care for Asthma, ADHD, ODD. [place] [facility] [place] have not been requested and have not received. Data Management Manager Required: No Facilities Plant Engineer: Not Required per policy Accompanied by: Self / Same As Patient Allergies No Known Allergies [No Known Allergies*] Allergy (Verified 11/03/24 14:41) Medication List - Last Reconciled 11/03/24 by Summer Pryor PA-C docusate sodium (Colace) 100 mg PO BID docusate sodium (Colace) 100 mg PO DAILY polyethylene glycol 3350 (Miralax) 17 grams PO DAILY Tobacco use date assessed: 11/03/24 Dental Screening Dental Screen Date: 11/03/24 Did you have a dental visit in the last 12 months?: Yes Did you have a dental problem in the last 6 months where you did not have access to dental care?: No Was dental information given to patient?: Patient has dentist [facility] Medical History Oppositional defiant disorder Annual physical exam Asthma ADHD Surgical History No pertinent past surgical history Family History Mother No problems noted. Other Mental health disorder Social History Household Members: Family Housing: Apartment Alcohol intake: never Patient Tobacco Use Status: Never used Tobacco e-Cigarette/Vaping Use: Never Used Second Hand Smoke Exposure: No service: No Current occupational status: disabled Cognitive needs: No Hearing needs: No Vision needs: No Questionnaire PHQ-9 Over the last 2 weeks, how often have you been bothered by any of the following problems? 1. Little interest or pleasure in doing things: not at all 2. Feeling down, depressed, or hopeless: not at all 3. Trouble falling or staying asleep, or sleeping too much: not at all 4. Feeling tired or having little energy: not at all 5. Poor appetite or overeating: not at all 6. Feeling bad about yourself - or that you are a failure or have let yourself or your family down: not at all 7. Trouble concentrating on things, such as reading the newspaper or watching television: not at all 8. Moving or speaking so slowly that other people could have noticed. Or the opposite - being so fidgety or restless that you have been moving around a lot more than usual: not at all 9. Thoughts that you would be better off or of hurting yourself in some way: not at all Total score: 0 Depression Screening Interpretation: Negative Depression Screening Done: Yes Source: Developed by Drs. Riley Lee, Beth Chen, Chris Esqueda and colleagues, with an educational ernst from [employer]. Thrive Questionnaire Date Thrive assessed: 11/03/24 I am a: Patient What is your living situation today?: I have a place to live, but I am worried about losing it in the future Within the past 12 months, did the food you bought not last and you didn't have the money to get more?: Sometimes True Within the past 12 months, did you worry whether your food would run out before you got money to buy more?: Sometimes True Do you have trouble paying for medicines?: I choose not to answer this question Do you have trouble getting transportation to medical appointments?: I choose not to answer this question Do you have trouble paying your heating and electricity bill?: I choose not to answer this question Do you have trouble taking care of your child, family member or friend?: I choose not to answer this question Do you have trouble with day-to-day activities such as bathing, preparing meals, shopping, managing finances, etc.?: I choose not to answer this question Are you currently unemployed and looking for a job?: I choose not to answer this question Are you interested in more education?: I choose not to answer this question Please select the resources that you would like help with: None Currently or been in a relationship where the following occur: I choose not to answer THRIVE Score: 3 AUDIT C Alcohol Use Questionnaire (AUDIT-C) 1. How often do you have a drink containing alcohol?: Never Total Score: 0 KELLY-7 AMB Questionnaire KELLY-7 Date KELLY - 7 assessed: 11/03/24 Feeling nervous, anxious, or on edge: 0 = Not at all Not being able to stop or control worryin = Not at all Worrying too much about different things: 0 = Not at all Trouble relaxin = Not at all Being so restless that it is hard to sit still: 0 = Not at all Becoming easily annoyed or irritable: 0 = Not at all Feeling afraid as if something awful might happen: 0 = Not at all Total KELLY-7 score (0-4 normal; 5-9 mild; 10-14 moderate; 15-21 severe): 0 Source: Developed by Drs. Riley Lee, Beth Chen, Chris Esqueda and colleagues, with an educational ernst from [employer]. KELLY-7 Assessment Billing KELLY-7 Assessment Tool: KELLY-7 Assessment 17241 Review of Systems Const All systems reviewed & are unremarkable except as noted in HPI and below Physical exam (Primary Care) Vital Signs: Last Vital Signs Pulse 70 11/03/24 13:57 BP 120/64 11/03/24 13:57 Pulse Ox 97 11/03/24 13:57 Oxygen Delivery Method Room Air 11/03/24 13:57 BMI result Body Mass Index 24.4 Tobacco/Smoking Status: Tobacco use Status Tobacco use date assessed 11/03/24 11/03/24 14:05 Patient Tobacco Use Status Never used Tobacco 11/03/24 14:05 e-Cigarette/Vaping Use Never Used 11/03/24 14:05 PHQ-9: PHQ-9 Score PHQ-9: Total score 0 11/03/24 14:05 Depression Screening Interpretation: Negative Thrive Assessment: Date of Thrive Assessment Date Thrive assessed 11/03/24 11/03/24 14:05 Currently or been in a relationship where the following occur: I choose not to answer Coding Level of Care Code New Pt Prev Care 18-39yr(20364 Diagnoses Annual physical exam Z00.00 Oppositional defiant disorder F91.3 ADHD F90.9 Constipation K59.00 Additional Codes KELLY-7 Assessment Billing - KELLY-7 Assessment Tool: KELLY-7 Assessment 27635 ([id number]) Assessment & Plan Assessment & Plan (1) Annual physical exam: Code(s): Z00.00 - Encounter for general adult medical examination without abnormal findings Category: Medical Plan: see below (2) Oppositional defiant disorder: Code(s): F91.3 - Oppositional defiant disorder Category: Medical Plan: see below (3) ADHD: Code(s): F90.9 - Attention-deficit hyperactivity disorder, unspecified type Category: Medical Plan: see below (4) Constipation: Code(s): K59.00 - Constipation, unspecified Category: Medical Plan: see below Plan Plan - Continue monitoring bowel habits, reinforce dietary changes with emphasis on fiber and hydration. - Implement colace and Miralax regimen if constipation persists. - Explore non-stimulant options for ADHD management avoiding addiction potential. Referral to psychiatrist - Referral to gastroenterology if constipation continues to be a problematic issue. - Consider the role of behavior therapy as an adjunct for ADHD. - Ensure vaccination history is up-to-date; confirmed influenza and COVID vaccinations were administered. Orders: Referrals Psychiatry Outpatient Consultation Service Summer Pryor PA-C F90.9 - Attention-deficit hyperactivity disorder, unspecified type, F91.3 - Oppositional defiant disorder Medications: New docusate sodium (Colace) 100 mg PO DAILY 30 caps 0RF constipation Summer Pryor PA-C polyethylene glycol 3350 (Miralax) 17 grams PO DAILY 238 grams 0RF constipation Summer Pryor PA-C Discontinued amoxicillin-pot clavulanate 875-125 mg Discontinued Reason: Patient Completed Course 1 tab PO Q12H 20 tabs 0RF 10 days Shimarlia Kwade, RMA polyethylene glycol 3350 (Miralax) Discontinued Reason: Patient no longer taking 17 g orally, mixed per package instructions with water, consume the liquid every hour until you begin having multiple large volume bowel movements. 30 ea 0RF Shimarlia Kwade, RMA amoxicillin-pot clavulanate 875-125 mg Discontinued Reason: Patient Completed Course 1 tab PO BID 14 tabs 0RF 7 days Shimarlia Kwade, RMA hydroxyzine HCl Discontinued Reason: Patient no longer taking 25 mg PO TID PRN 30 tabs 0RF anxiety Shimarlia Kwade, RMA Patient Instructions: Patient Instructions - Continue dietary fiber and hydration adjustments to support bowel function. - Use colace and Miralax as needed under guidance for bowel regulation. - Monitor ADHD symptoms; consider behavioral strategies for management. - Watch for any changes in bowel habits or new gastrointestinal symptoms. - Maintain regular physical activity and balanced nutrition. - Schedule a follow-up for ongoing symptoms or concerns. - Seek prompt evaluation if gastrointestinal discomfort or changes persist. - Stay up-to-date with all vaccinations, as needed. Scribe Plan - Not visible on output: History of Present Illness The patient is a 24-year-old male presenting for an annual physical exam. In addition he would like to discuss intermittent constipation. The issue was previously addressed in an Emergency Room visit on September 12, 2024, where he underwent an KUB and was diagnosed with stool retention. Treatment with colace and Miralax was initiated, and the patient reported completing his course of these medications. Since then, bowel movements have been irregular, characterized by snake-like formations, varying in consistency, and occurring once or twice daily. The patient described experiencing abdominal discomfort preceding bowel movements but reports feeling relief post-evacuation. Dietary modifications, including increased water intake, have been made, and weight loss of approximately 10 pounds was observed, attributed to changes in eating patterns to avoid aggravating constipation. ADHD and ODD have been lifelong challenges, initially identified around age [age], and have impacted educational experiences. patient called his mother on his cell phone to allow her to speak to us and mother reported that he was diagnosed as a child in [place] then they moved to [place] and they continued care there. She reports he was on a trial of Adderall when he was younger although due to making him very sluggish they took him off of this medication. Patient reports he has been disabled since a child and has always had an IEP. 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 Patient reports he has been on Hydroxyzine, although he has been off of all medications for approximately 1 year. He reports he was being seen by [facility] and [facility] by Javier Farrar NP. Patient reports he would like to go back to seen a therapist or psychiatrist. He would also like to be on medication to help his ODD and ADHD symptoms. Patient denies any suicidal ideations, racing thoughts, paranoid thoughts, homicidal ideations, thoughts of self-injury or any other symptoms complaints or concerns at this time. Patient denies any nicotine usage, drug usage or any alcohol usage. Patient is currently disabled not working. 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 Social History - Employment: Artist, which involves irregular sleep patterns - Residence: Lives with mother - Exercise: Engages in regular physical activity - Substance Use: Denies use of cigarettes and alcohol - Nutrition: Diet includes high fiber intake - Weight Management: Recent weight loss attributed to dietary changes Review of Systems - Gastrointestinal: Reports snake-like and irregular bowel movements with varying consistency. - Psychiatric: Reports ADHD and a desire to manage fidgety behavior without addictive substances. - General: Denies unintentional significant weight loss; reports recent 10-pound weight loss due to dietary change. Physical Exam Appearance: Alert. Oriented X3. No acute distress. Head: Normal external exam. Normocephalic. Atraumatic. No Kraus signs noted. No raccoon eyes noted. Eyes: Pupils are equal, round, and reactive to light. Extraocular movements intact. Conjunctiva and sclera normal. Eyelids normal. Ears: External auditory canal normal. Tympanic membranes normal. No significant ear wax noted, except a little in the entry of one ear. Throat: Pharynx normal. Uvula midline. Moist mucous membranes. No trismus noted. No drooling noted. No muffled voice noted. Patient reports having a little cold. Neck: Normal inspection. Neck supple. Full range of motion. No adenopathy. Thyroid Normal. No meningeal signs. No neck mass noted. Cardiovascular: Normal heart rate and rhythm. Heart sound normal. No murmurs noted. Pulses normal throughout. Respiratory: No respiratory distress. Painless inspiration. Breath sounds normal. No wheezes/rales/rhonchi noted. Chest nontender. No accessory muscle usage noted or decreased air movement noted. Abdomen: Soft and nontender. Bowel sounds normal in all 4 quadrants. No distention noted. No organomegaly noted. No visible injury noted. Patient reports feeling a little constipated. Back: No costovertebral angle tenderness. Full range of motion noted. Skin: Skin warm and dry. Normal skin color. Normal skin turgor. No rashes/lesions/lacerations noted. Extremities: No lower extremity edema. Extremities exhibit normal range of motion. Extremities nontender. Neuro: Oriented X 3. No motor deficit. No sensory deficit. Reflexes normal. Results - Labs: Hemoglobin levels were normal during recent ER visit. - Imaging: Abdominal X-ray showed stool accumulation, and all previous CT scans were reportedly within normal limits. Plan - Continue monitoring bowel habits, reinforce dietary changes with emphasis on fiber and hydration. - Implement colace and Miralax regimen if constipation persists. - Explore non-stimulant options for ADHD management avoiding addiction potential. - Referral to gastroenterology if constipation continues to be a problematic issue. - Consider the role of behavior therapy as an adjunct for ADHD. - Ensure vaccination history is up-to-date; confirmed influenza and COVID vaccinations were administered. Patient was informed and verbally consented to the use of an ambient scribe for clinic note documentation during this visit. Discussion Notes During our conversation, I explained the management and treatment options for his constipation, emphasizing the importance of dietary adjustments and fiber intake. I suggested incorporating colace and Miralax into his routine as initial interventions. We discussed potential ADHD management that avoids stimulant medications to mitigate addiction risk. I proposed possible exploration of non-pharmacologic strategies, including behavioral therapy. The need for vigilance regarding gastrointestinal symptoms and consideration of a gastroenterology referral if symptoms persist was highlighted. I provided reassurance regarding weight loss, linking it to dietary adjustments, not a malignancy. Lastly, I clarified the importance of maintaining an updated vaccination schedule, and we confirmed his recent compliance with flu and COVID vaccinations.
[2024-11-03 13:57] VITALS: BP 120/64; PULSE 70; O2SAT 97; BMI 24.4
== END 2024-11-03 14:52 | disposition home or self-care (01) ==
PROVIDERS: PCP Internal Medicine; Visit Provider Physician Assistant Medical
DX: Z00.00 Encounter for general adult medical examination without abnormal findings (principal); F91.3 Oppositional defiant disorder; F90.9 Attention-deficit hyperactivity disorder, unspecified type; K59.00 Constipation, unspecified

== ENCOUNTER 2024-11-26 23:36 | Emergency (ER) | payer OTHER, SELFPAY ==
[2024-11-26 23:51] VITALS: BP 126/84; BP 133/52; PULSE 90; PULSE 98; RESP 18; TEMP 37.1; O2SAT 96; O2SAT 97; BMI 25.1
[2024-11-27 00:20] LABS: MANUAL DIFF FLAG NO
[2024-11-27 00:22] LABS: Basophils Percent Auto 0.4 % (0-2); Eosinophils Percent Auto 0.5 % (0-4); Hematocrit 40.6 % (42.0-52.0); Hemoglobin 13.6 g/dl (14.0-18.0); Imm Gran Abs Auto 0.02 X10*3/uL (0.00-0.03); Imm Gran Pct Auto 0.2 % (0.0-0.4); Lymphocytes Absolute Auto 1.7 X10*3/uL (1.2-4.9); Lymphocytes Percent Auto 21.4 % (20-40); Mean Corpuscular HGB Conc 33.5 g/dl (31.0-36.0); Mean Corpuscular Hemoglobin 27.2 pg (27.0-33.0); Mean Corpuscular Volume 81.2 fL (80.0-98.0); Mean Platelet Volume 11.2 fL (9.4-12.4); Monocytes Absolute Auto 0.5 X10*3/uL (0.1-1.2); Monocytes Percent Auto 6.4 % (2-11); Neutrophils Absolute Auto 5.7 x10*3/uL (2.0-8.3); Neutrophils Percent Auto 71.1 % (45-73); Platelet Count 217 X10*3/uL (160-400); Red Cell Distribution Width 12.8 % (11.0-16.0)
[2024-11-27 00:39] LABS: Alanine Aminotransferase 24 U/L (0-40); Albumin Level 4.7 g/dL (3.5-5.0); Alkaline Phosphatase 109 U/L (39-117); Anion Gap 17 (12-20); Aspartate Amino Transferase 35 U/L (5-37); Bilirubin Total 0.9 mg/dL (0.0-1.0); Blood Urea Nitrogen 8 mg/dL (9-16); Calcium 9.3 mg/dL (8.4-10.2); Carbon Dioxide 22 mmol/L (22-29); Chloride 107 mmol/L (96-108); Creatinine Clr Calc Pharmacy 109.4; Estimated Glomerular Filt Rate > 60; Ethanol < 10 mg/dL; Glucose Random 102 mg/dL (60-115); Potassium 3.9 mmol/L (3.3-5.1); Sodium 142 mmol/L (135-145); Total Protein 7.3 g/dL (6.5-8.0)
[2024-11-27 00:39] LABS: Acetaminophen LAB < 3 mcg/mL (<30); Salicylate < 5.0 mg/dL (15-30)
--- NOTE | 2024-11-27 01:16 | ED_ITS ---
HPI - Psych General Chief Complaint: Psychiatric Symptoms Stated Complaint: SI statements, hx of BH issues Time Seen by Provider: 11/27/24 00:25 Source: patient Mode of arrival: ambulatory Limitations: no limitations History of Present Illness ED Provider: Park Patricia NP HPI Narrative: Patient is a 24-year-old male who presents to the emergency department via EMS after PD was on scene after verbal altercation occurring at home with his mother. He states that in his mother have a strained relationship, they often get into verbal altercations. He states that she has made comments about having wished that he was aborted, gives him a hard time but still living at home with her and not living on his own at this time. He states that ?maybe I said something I did not mean in the moment but I do not remember explicitly what I said. There was some mentioned in possible SI but he denies SI at this time. He denies any recreational drug or alcohol usage. Additionally he does denies homicidal ideations. Does not take any medications, he states he does not follow with a therapist. He feels as though he would like to return home and he will ?be cooperative? she had his mother be amenable to taking him back in. Related Data Previous Rx's ?Medication ?Instructions ?Recorded docusate sodium 100 mg capsule 100 mg PO BID #30 caps 09/12/24 (Colace) docusate sodium 100 mg capsule 100 mg PO DAILY constipation #30 11/03/24 (Colace) caps polyethylene glycol 3350 17 17 g PO DAILY constipation #238 11/03/24 gram/dose oral powder (Miralax) grams Allergies Allergy/AdvReac Type Severity Reaction Status Date / Time No Known Allergies Allergy Verified 11/27/24 00:03 [No Known Allergies*] Review of Systems 2 Review of Systems: Yes all other systems are reviewed and are negative PMFSH Past Medical History Attestation statement: The following information was validated with the patient. Source: old records reviewed Medical History Oppositional defiant disorder Annual physical exam Asthma ADHD Surgical History No pertinent past surgical history Family History Family History Mother No problems noted. Other Mental health disorder Social History Social History Household Members: Family Housing: Apartment Alcohol intake: never Patient Tobacco Use Status: Never used Tobacco e-Cigarette/Vaping Use: Never Used Second Hand Smoke Exposure: No Advance Directives: No Advance Directives Information Provided: Yes Do you have a plan to hurt others: No Plan service: No Current occupational status: disabled Cognitive needs: No Hearing needs: No Vision needs: No Physical Exam 2 Vital Signs: Vital Signs: Last Vital Signs Temp 98.7 F 11/26/24 23:51 Pulse 98 11/26/24 23:51 Resp 18 11/26/24 23:51 BP 133/52 L 11/26/24 23:51 Pulse Ox 96 11/26/24 23:51 O2 Del Method Room Air 11/26/24 23:51 BMI result Body Mass Index 25.1 Appearance: Alert.?Oriented to person, place and time. No acute distress.?Normal affect. Eyes: Pupils equal, round and reactive to light.? ENT: Pharynx normal.?? Neck: Normal inspection.? Neck supple.?? CVS: Heart sounds normal. Normal heart rate and rhythm.? Pulses normal.?? Respiratory: No respiratory distress.? Lung sounds clear to auscultation bilaterally?? Abdomen: Soft and non-tender. Normoactive bowel sounds. Skin: Skin warm and dry.? Normal skin color.? Extremities: No lower extremity edema.? Neuro: Moves all extremities spontaneously. Sensation intact bilaterally. CN II- XII intact. No focal neuro deficits. Ambulates with normal steady gait. Medical Decision Making Medical Decision Making MDM Narrative: Patient is a 24-year-old male with past medical history of ADHD, oppositional defiance disorder presenting to emergency department after verbal altercation with mother, it is unclear whether there was any direct SI statement made the patient is denying at this time. I have attempted to contact his mother Manuela but unable to make contact, left voicemail for call back. He denies any depression, if mother able to affirm that there was no suicidal statements, EMS gave reports nursing staff that PD 1 him brought here to simply diffuse the situation. He has no homicidal ideations. He states he has not significantly depressed. He has no history of self-harm or SI attempts by his account. At this time unfortunately unable to receive cooperating information from mother who will be placed in physician observation for care team evaluation and assistance with safe disposition planning. Serum labs were obtained for basic medical screening. CBC is without leukocytosis, has a mild normocytic anemia that does not meet transfusion criteria, no thrombocytopenia. No electrolyte derangement. No MARTÍNEZ. LFTs unremarkable. Differential Diagnosis Differential Diagnoses: The differential diagnosis associated with the presentation includes (See narrative above and below for further detail) Admission/Observation Consideration of admission/observation: Escalation of care including admission/observation considered Patient is being observed in the Emergency Department for depression and anxiety. Observation time was started at 01:50 on 11/27/2024.?The patient is currently stable and non-toxic appearing. Observation is being initiated in the Emergency Department to allow time to help differentiate if the patient's depression and anxiety is due to Substance Induced Mood Disorder and Anxiety versus Major Depressive Disorder, Bipolar Gissell, Bipolar Depression, and Schizophrenia. The patient will receive frequent psychiatric assessments from the provider as well as from nursing staff. The patient will also be monitored for the need of PRN agitation medications such as Haldol, Ativan, and Benadryl. Consult Healthcare Provider Management of the patient was discussed with: Behavioral Health Provider (CARE team) Lab Data MDM Lab Attestation statement: I reviewed the patient's lab results. (See narrative above) 11/27/24 00:13 11/27/24 00:13 Labs: Lab Results 11/27/24 11/27/24 Range/Units 00:13 00:14 WBC 8.0 (4.8-10.8) X10*3/uL RBC 5.00 (4.60-5.80) X10*6/uL Hgb 13.6 L (14.0-18.0) g/dl Hct 40.6 L (42.0-52.0) % MCV 81.2 (80.0-98.0) fL MCH 27.2 (27.0-33.0) pg MCHC 33.5 (31.0-36.0) g/dl RDW 12.8 (11.0-16.0) % Plt Count 217 (160-400) X10*3/uL MPV 11.2 (9.4-12.4) fL Immature Gran % (Auto) 0.2 (0.0-0.4) % Neut % (Auto) 71.1 (45-73) % Lymph % (Auto) 21.4 (20-40) % [place] % (Auto) 6.4 (2-11) % Eos % (Auto) 0.5 (0-4) % Baso % (Auto) 0.4 (0-2) % Lymph # (Auto) 1.7 (1.2-4.9) X10*3/uL [place] # (Auto) 0.5 (0.1-1.2) X10*3/uL Eos # (Auto) 0.0 (0.0-0.4) X10*3/uL Baso # (Auto) 0.0 (0.0-0.2) X10*3/uL Abs Immat Gran (auto) 0.02 (0.00-0.03) X10*3/uL Absolute Neuts (auto) 5.7 (2.0-8.3) x10*3/uL Absolute Nucleated RBC 0.000 (0.0-0.012) X10*3/uL Nucleated RBC % (auto) 0.0 (0.0-0.2) /100WBC Sodium 142 (135-145) mmol/L Potassium 3.9 (3.3-5.1) mmol/L Chloride 107 (96-108) mmol/L Carbon Dioxide 22 (22-29) mmol/L Anion Gap 17 (12-20) BUN 8 L (9-16) mg/dL Creatinine 0.99 (0.5-1.4) mg/dL Estim Creat Clear Calc 109.4 Estimated GFR > 60 Random Glucose 102 (60-115) mg/dL Calcium 9.3 D (8.4-10.2) mg/dL Total Bilirubin 0.9 (0.0-1.0) mg/dL AST 35 (5-37) U/L ALT 24 (0-40) U/L Alkaline Phosphatase 109 (39-117) U/L Total Protein 7.3 (6.5-8.0) g/dL Albumin 4.7 (3.5-5.0) g/dL Salicylates < 5.0 L (15-30) mg/dL Acetaminophen < 3 (<30) mcg/mL Ethyl Alcohol < 10 mg/dL Independent Historian Clinical information obtained from an independent historian. History obtained from or confirmed by: EMS External Record Review External record reviewed: Outpatient record Chronic Conditions Patient?s care impacted by: Other (See narrative above) Discharge Plan Discharge Clinical Impression: Oppositional defiant disorder Patient Disposition: Still a Patient Prescriptions: No Action docusate sodium [Colace] 100 mg capsule 100 mg PO BID Qty: 30 0RF docusate sodium [Colace] 100 mg capsule 100 mg PO DAILY Qty: 30 0RF polyethylene glycol 3350 [Miralax] 17 gram/dose powder 17 g PO DAILY Qty: 238 0RF Print Language: Namibian
--- NOTE | 2024-11-27 08:18 | PC.NURSE ---
pt requesting personal hygiene products to shower. pt showered. drug screen obtained/sent to lab. pt requesting something other than eggs for breakfast - kitchen called. new tray brought to pt. pt sitting in his room eating breakfast in no apparent distress. pending care team consult at this time. plan of care ongoing.
[2024-11-27 08:30] LABS: Amphetamine Screen Urine Not Detected (Not Detect); Barbiturates, Urine Not Detected (Not Detect); Benzodiazepines Screen Urine Not Detected (Not Detect); Buprenorphine Scr Not Detected (Not Detect); Cannabinoid Screen Urine Not Detected (Not Detect); Cocaine Screen Urine Not Detected (Not Detect); Fentanyl, urine Not Detected (Not Detect); Methadone Screen, Urine Not Detected (Not Detect); Opiate Screen Urine Not Detected (Not Detect); Oxycodone Screen Urine Not Detected (Not Detect); Phencyclidine Screen Urine Not Detected (Not Detect)
[2024-11-27 08:31] VITALS: BP 126/59; PULSE 89; RESP 18; TEMP 36.6; O2SAT 99
--- NOTE | 2024-11-27 08:40 | PC.NURSE ---
pt speaking w/ care team at this time.
[2024-11-27 09:12] VITALS: BP 126/59; PULSE 89; RESP 18; TEMP 36.6; O2SAT 99
--- NOTE | 2024-11-27 09:19 | MHC.CARE ---
Referral to [facility] complete
== END 2024-11-27 09:23 | disposition home or self-care (01) ==
PROVIDERS: Emergency Provider Emergency Medicine; PCP Family Medicine
DX: F91.3 Oppositional defiant disorder (principal); R45.851 Suicidal ideations; Z51.81 Encounter for therapeutic drug level monitoring; Z79.899 Other long term (current) drug therapy
CPT/HCPCS: 36415; 80053; 80143; 80179; 80307; 85025; 99284; S9485

== ENCOUNTER 2025-01-11 10:44 | Emergency (ER) | payer OTHER, SELFPAY ==
--- NOTE | ~2025-01-11 | XR_ITS ---
CLINICAL HISTORY: abd pain, constipation 1 view abdomen Comparison: CR/RI/SR - XR KUB - 09/12/24 20:52 EDT Findings: No pneumoperitoneum or pneumatosis. No abnormal calcifications. No acute fractures. IMPRESSION: Nonobstructive bowel gas pattern with moderate stool burden. This document has been electronically signed by: Antonio Penn MD on 01/11/2025 12:42:46
[2025-01-11 11:08] VITALS: BP 124/67; PULSE 83; RESP 18; TEMP 36.6; O2SAT 100; BMI 24.4
--- NOTE | 2025-01-11 11:08 | ED.ABDPAIN ---
HPI - Abdominal Pain General Chief Complaint: Abdominal Pain Stated Complaint: abd pain, constipated Related Data Previous Rx's ?Medication ?Instructions ?Recorded docusate sodium 100 mg capsule 100 mg PO BID #30 caps 09/12/24 (Colace) docusate sodium 100 mg capsule 100 mg PO DAILY constipation #30 11/03/24 (Colace) caps polyethylene glycol 3350 17 17 g PO DAILY constipation #238 11/03/24 gram/dose oral powder (Miralax) grams Allergies Allergy/AdvReac Type Severity Reaction Status Date / Time No Known Allergies Allergy Verified 01/11/25 11:09 [No Known Allergies*] [facility] Past Medical History Medical History Oppositional defiant disorder Annual physical exam Asthma ADHD Surgical History No pertinent past surgical history Family History Family History Mother No problems noted. Other Mental health disorder Social History Social History Household Members: Family Housing: Apartment Alcohol intake: never Patient Tobacco Use Status: Never used Tobacco e-Cigarette/Vaping Use: Never Used Second Hand Smoke Exposure: No Advance Directives: No Advance Directives Information Provided: No Do you have a plan to hurt others: No Plan service: No Current occupational status: disabled Cognitive needs: No Hearing needs: No Vision needs: No Physical Exam ED Vital Signs: Vital Signs - 24 hr 01/11/25 11:08 Temperature 97.9 F Pulse Rate 83 Respiratory Rate 18 Blood Pressure 124/67 Pulse Oximetry 100 Oxygen Delivery Method Room Air BMI result Body Mass Index 24.4 Course Course Course Narrative: This is an RME performed by Monet Patricia CNP: Additional HPI, ROS, PE not included below will be deferred to primary provider. Patient is a 24-year-old male who presents emergency department for evaluation of abdominal pain radiates throughout abdomen and back. Reports last time he was evaluated for this he was advised that he was constipated. He does admit that his last bowel movement was 6 days ago Plan: Serum labs, KUB Reevaluation(s) Reevaluation #1: LWCT 1 view abdomen Comparison: CR/TX/SR - XR KUB - 09/12/24 20:52 EDT Findings: No pneumoperitoneum or pneumatosis. No abnormal calcifications. No acute fractures. IMPRESSION: Nonobstructive bowel gas pattern with moderate stool burden. CBC revealing a mild leukopenia, mild normocytic anemia not meet to transfusion criteria, no thrombocytopenia. No electrolyte derangement. No MARTÍNEZ. Overall unremarkable LFTs and lipase. Medical Decision Making Lab Data 01/11/25 11:17 01/11/25 11:17 Labs: Lab Results 01/11/25 Range/Units 11:17 WBC 4.3 L (4.8-10.8) X10*3/uL RBC 4.91 (4.60-5.80) X10*6/uL Hgb 13.3 L (14.0-18.0) g/dl Hct 40.5 L (42.0-52.0) % MCV 82.5 (80.0-98.0) fL MCH 27.1 (27.0-33.0) pg MCHC 32.8 (31.0-36.0) g/dl RDW 14.0 (11.0-16.0) % Plt Count 205 (160-400) X10*3/uL MPV 10.4 (9.4-12.4) fL Immature Gran % (Auto) 0.2 (0.0-0.4) % Neut % (Auto) 48.4 (45-73) % Lymph % (Auto) 43.2 H (20-40) % [place] % (Auto) 6.6 (2-11) % Eos % (Auto) 1.4 (0-4) % Baso % (Auto) 0.2 (0-2) % Lymph # (Auto) 1.8 (1.2-4.9) X10*3/uL [place] # (Auto) 0.3 (0.1-1.2) X10*3/uL Eos # (Auto) 0.1 (0.0-0.4) X10*3/uL Baso # (Auto) 0.0 (0.0-0.2) X10*3/uL Abs Immat Gran (auto) 0.01 (0.00-0.03) X10*3/uL Absolute Neuts (auto) 2.1 (2.0-8.3) x10*3/uL Absolute Nucleated RBC 0.000 (0.0-0.012) X10*3/uL Nucleated RBC % (auto) 0.0 (0.0-0.2) /100WBC Sodium 141 (135-145) mmol/L Potassium 4.4 (3.3-5.1) mmol/L Chloride 107 (96-108) mmol/L Carbon Dioxide 26 (22-29) mmol/L Anion Gap 12 (12-20) BUN 7 L (9-16) mg/dL Creatinine 0.94 (0.5-1.4) mg/dL Estim Creat Clear Calc 115.2 Estimated GFR > 60 Random Glucose 91 (60-115) mg/dL Calcium 8.7 D (8.4-10.2) mg/dL Total Bilirubin 0.9 (0.0-1.0) mg/dL AST 37 (5-37) U/L ALT 36 (0-40) U/L Alkaline Phosphatase 73 (39-117) U/L Total Protein 5.9 L (6.5-8.0) g/dL Albumin 3.7 (3.5-5.0) g/dL Lipase 24 (8-78) U/L Discharge Plan Discharge Clinical Impression: Abdominal pain Patient Disposition: Left W/O Completing Treatment Prescriptions: No Action docusate sodium [Colace] 100 mg capsule 100 mg PO BID Qty: 30 0RF docusate sodium [Colace] 100 mg capsule 100 mg PO DAILY Qty: 30 0RF polyethylene glycol 3350 [Miralax] 17 gram/dose powder 17 g PO DAILY Qty: 238 0RF Discharge Date/Time: 01/11/25 15:46
[2025-01-11 11:20] LABS: MANUAL DIFF FLAG NO
[2025-01-11 11:21] LABS: Basophils Percent Auto 0.2 % (0-2); Eosinophils Absolute Auto 0.1 X10*3/uL (0.0-0.4); Eosinophils Percent Auto 1.4 % (0-4); Hematocrit 40.5 % (42.0-52.0); Hemoglobin 13.3 g/dl (14.0-18.0); Imm Gran Abs Auto 0.01 X10*3/uL (0.00-0.03); Imm Gran Pct Auto 0.2 % (0.0-0.4); Lymphocytes Absolute Auto 1.8 X10*3/uL (1.2-4.9); Lymphocytes Percent Auto 43.2 % (20-40); Mean Corpuscular HGB Conc 32.8 g/dl (31.0-36.0); Mean Corpuscular Hemoglobin 27.1 pg (27.0-33.0); Mean Corpuscular Volume 82.5 fL (80.0-98.0); Mean Platelet Volume 10.4 fL (9.4-12.4); Monocytes Absolute Auto 0.3 X10*3/uL (0.1-1.2); Monocytes Percent Auto 6.6 % (2-11); Neutrophils Absolute Auto 2.1 x10*3/uL (2.0-8.3); Neutrophils Percent Auto 48.4 % (45-73); Platelet Count 205 X10*3/uL (160-400); Red Blood Count 4.91 X10*6/uL (4.60-5.80); White Blood Count 4.3 X10*3/uL (4.8-10.8)
[2025-01-11 11:38] LABS: Alanine Aminotransferase 36 U/L (0-40); Albumin Level 3.7 g/dL (3.5-5.0); Alkaline Phosphatase 73 U/L (39-117); Anion Gap 12 (12-20); Aspartate Amino Transferase 37 U/L (5-37); Bilirubin Total 0.9 mg/dL (0.0-1.0); Blood Urea Nitrogen 7 mg/dL (9-16); Calcium 8.7 mg/dL (8.4-10.2); Carbon Dioxide 26 mmol/L (22-29); Chloride 107 mmol/L (96-108); Creatinine Clr Calc Pharmacy 115.2; Estimated Glomerular Filt Rate > 60; Glucose Random 91 mg/dL (60-115); Lipase 24 U/L (8-78); Potassium 4.4 mmol/L (3.3-5.1); Sodium 141 mmol/L (135-145); Total Protein 5.9 g/dL (6.5-8.0)
== END 2025-01-11 15:46 | disposition left against medical advice (07) ==
PROVIDERS: Nurse Practitioner Family; Emergency Provider Emergency Medicine; PCP Physician Assistant Medical
DX: K59.00 Constipation, unspecified (principal); R10.2 Pelvic and perineal pain; Z79.899 Other long term (current) drug therapy
CPT/HCPCS: 36415; 74018; 80053; 83690; 85025; 99281; 99283

== ENCOUNTER → 2025-01-11 11:10 | Outpatient (BNV) | payer OTHER, SELFPAY | PROVIDERS: PCP Physician Assistant Medical; Visit Provider Radiology Diagnostic Radiology | DX: R10.9 Unspecified abdominal pain (principal) | CPT/HCPCS: 74018 ==

== ENCOUNTER 2025-01-13 09:18 | Emergency (ER) | payer OTHER, SELFPAY ==
--- NOTE | ~2025-01-13 | XR_ITS ---
EXAMINATION: XR ABDOMEN KUB CLINICAL INDICATION: ABDOMINAL PAIN COMPARISON: January 11, 2025. TECHNIQUE: AP view of the abdomen. FINDINGS: Abundant stool throughout the large intestine. No intestinal dilatation. No air-fluid levels. No metallic or radiopaque foreign body. Osseous structures are intact. XR/XR abdomen 1V IMPRESSION: Abundant stool without intestinal obstruction pattern. Electronically signed by: Hernandez Mathis MD 01/13/2025 10:28 AM RUSSEL
[2025-01-13 09:25] VITALS: BP 115/53; PULSE 76; RESP 16; TEMP 36.8; O2SAT 98; BMI 24.1
--- NOTE | 2025-01-13 10:13 | ED.ABDPAIN ---
HPI - Abdominal Pain General Chief Complaint: Abdominal Pain Stated Complaint: abd pain Time Seen by Provider: 01/13/25 09:57 Source: patient Mode of arrival: ambulatory Limitations: no limitations History of Present Illness HPI narrative: THIS IS A 24 YEARS OLD THE PATIENT WITH A HISTORY OF ANXIETY DISORDER, HISTORY OF DEPRESSION PRESENTED TO THE EMERGENCY DEPARTMENT COMPLAINING OF ABDOMINAL CRAMPS ESPECIALLY IN THE LEFT LOWER QUADRANT DENIES ANY FEVER CHILLS VOMITING. MD elicited complaint: abdominal pain Pertinent past history: constipation Onset (ago): month(s) Pain Consistency: constant Location: none Quality: cramping Radiation: none Migration to: no migration Exacerbating factors: nothing Associated symptoms: denies other symptoms Related Data Previous Rx's ?Medication ?Instructions ?Recorded docusate sodium 100 mg capsule 100 mg PO BID #30 caps 09/12/24 (Colace) docusate sodium 100 mg capsule 100 mg PO DAILY constipation #30 11/03/24 (Colace) caps polyethylene glycol 3350 17 17 g PO DAILY constipation #238 11/03/24 gram/dose oral powder (Miralax) grams docusate sodium 100 mg capsule 100 mg PO BID #14 caps 01/13/25 (Colace) Allergies Allergy/AdvReac Type Severity Reaction Status Date / Time No Known Allergies Allergy Verified 01/13/25 09:28 [No Known Allergies*] Review of Systems Eyes: Reports no additional eye complaints Reports system reviewed and no additional complaints, except as documented Cardiovascular: Reports no additional cardiovascular complaints [facility] Past Medical History Attestation statement: The following information was validated with the patient. [facility] Narrative: ANXIETY/DEPRESSION Medical History Oppositional defiant disorder Annual physical exam Asthma ADHD Surgical History No pertinent past surgical history Family History Family History Mother No problems noted. Other Mental health disorder Social History Social History Household Members: Family Housing: Apartment Alcohol intake: never Patient Tobacco Use Status: Never used Tobacco e-Cigarette/Vaping Use: Never Used Second Hand Smoke Exposure: No Advance Directives: No Advance Directives Information Provided: Yes service: No Current occupational status: disabled Cognitive needs: No Hearing needs: No Vision needs: No Physical Exam ED Vital Signs: Vital Signs - 24 hr 01/13/25 09:25 Temperature 98.2 F Pulse Rate 76 Respiratory Rate 16 Blood Pressure 115/53 L Pulse Oximetry 98 Oxygen Delivery Method Room Air BMI result Body Mass Index 24.1 NO ACUTE DISTRESS APPEARS COMFORTABLE SITTING IN THE STRETCHER Const General: cooperative and healthy appearing Nutritional Appearance: average body habitus Orientation/consciousness: patient oriented x3 Limitations: no limitations HENMT Head: Yes normal to inspection General nose exam: Normal external nose present Face and sinus: Yes normal facial exam Mouth: Normal oral and palatal mucosa present Throat: Yes posterior oropharynx normal Neck Neck: Yes normal visual inspection and Yes full ROM Chest Chest palpation & inspection: normal inspection of the chest Resp Effort & Inspection: normal respiratory effort Auscultation: clear to auscultation bilaterally Cardio Jugular venous distension: no JVD Rate: regular rate Rhythm: regular rhythm GI Inspection: Yes normal to inspection Palpation (GI): Soft to palpation, not firm, nontender and no guarding General: Yes no CVA tenderness Back/Spine/Pelvis Back: no CVA tenderness Neuro General: patient oriented x3 Course Reevaluation(s) Reevaluation #1: On re-examination patient is feeling better labs normal a KUB showed constipation I think he can be discharged home I do not think he needs a CT is a 24 years old young inpatient risk of radiation would outweigh the benefit Time: 12:38 Medical Decision Making Medical Decision Making MDM Narrative: PATIENT PRESENTED COMPLAINING OF ABDOMINAL PAIN WE WILL OBTAIN LABS Differential Diagnosis Differential Diagnoses: The differential diagnosis associated with the presentation includes VIRAL SYNDROME/ANXIETY/COLITIS Admission/Observation Consideration of admission/observation: Escalation of care including admission/observation considered Lab Data 01/13/25 10:41 01/13/25 10:41 Labs: Lab Results 01/13/25 Range/Units 10:41 WBC 4.3 L (4.8-10.8) X10*3/uL RBC 4.83 (4.60-5.80) X10*6/uL Hgb 13.1 L (14.0-18.0) g/dl Hct 40.2 L (42.0-52.0) % MCV 83.2 (80.0-98.0) fL MCH 27.1 (27.0-33.0) pg MCHC 32.6 (31.0-36.0) g/dl RDW 13.9 (11.0-16.0) % Plt Count 198 (160-400) X10*3/uL MPV 10.6 (9.4-12.4) fL Immature Gran % (Auto) 0.2 (0.0-0.4) % Neut % (Auto) 56.7 (45-73) % Lymph % (Auto) 37.1 (20-40) % [place] % (Auto) 5.1 (2-11) % Eos % (Auto) 0.9 (0-4) % Baso % (Auto) 0.0 (0-2) % Lymph # (Auto) 1.6 (1.2-4.9) X10*3/uL [place] # (Auto) 0.2 (0.1-1.2) X10*3/uL Eos # (Auto) 0.0 (0.0-0.4) X10*3/uL Baso # (Auto) 0.0 (0.0-0.2) X10*3/uL Abs Immat Gran (auto) 0.01 (0.00-0.03) X10*3/uL Absolute Neuts (auto) 2.4 (2.0-8.3) x10*3/uL Absolute Nucleated RBC 0.000 (0.0-0.012) X10*3/uL Nucleated RBC % (auto) 0.0 (0.0-0.2) /100WBC Sodium 140 (135-145) mmol/L Potassium 4.5 (3.3-5.1) mmol/L Chloride 107 (96-108) mmol/L Carbon Dioxide 29 (22-29) mmol/L Anion Gap 9 L (12-20) BUN 7 L (9-16) mg/dL Creatinine 0.82 (0.5-1.4) mg/dL Estim Creat Clear Calc 132.1 Estimated GFR > 60 Random Glucose 92 (60-115) mg/dL Calcium 8.7 (8.4-10.2) mg/dL Total Bilirubin 0.7 (0.0-1.0) mg/dL AST 35 (5-37) U/L ALT 35 (0-40) U/L Alkaline Phosphatase 75 (39-117) U/L Total Protein 6.0 L (6.5-8.0) g/dL Albumin 3.8 (3.5-5.0) g/dL Lipase 24 (8-78) U/L Independent Interpretation I performed an independent interpretation of an: Plain X-Ray Radiology Impression Radiologist Impression: constipation Discharge Plan Discharge Clinical Impression: Abdominal pain Qualifiers: Abdominal location: generalized Qualified Code(s): R10.84 - Generalized abdominal pain Constipation Qualifiers: Constipation type: unspecified constipation type Qualified Code(s): K59.00 - Constipation, unspecified Patient Disposition: Home, Self-Care Instructions: Constipation (DC), Abdominal Pain (ED) Prescriptions: New docusate sodium [Colace] 100 mg capsule 100 mg PO BID Qty: 14 0RF No Action docusate sodium [Colace] 100 mg capsule 100 mg PO BID Qty: 30 0RF docusate sodium [Colace] 100 mg capsule 100 mg PO DAILY Qty: 30 0RF polyethylene glycol 3350 [Miralax] 17 gram/dose powder 17 g PO DAILY Qty: 238 0RF Print Language: Nepali
[2025-01-13 10:49] LABS: MANUAL DIFF FLAG NO
[2025-01-13 10:53] LABS: Eosinophils Percent Auto 0.9 % (0-4); Hematocrit 40.2 % (42.0-52.0); Hemoglobin 13.1 g/dl (14.0-18.0); Imm Gran Abs Auto 0.01 X10*3/uL (0.00-0.03); Imm Gran Pct Auto 0.2 % (0.0-0.4); Lymphocytes Absolute Auto 1.6 X10*3/uL (1.2-4.9); Lymphocytes Percent Auto 37.1 % (20-40); Mean Corpuscular HGB Conc 32.6 g/dl (31.0-36.0); Mean Corpuscular Hemoglobin 27.1 pg (27.0-33.0); Mean Corpuscular Volume 83.2 fL (80.0-98.0); Mean Platelet Volume 10.6 fL (9.4-12.4); Monocytes Absolute Auto 0.2 X10*3/uL (0.1-1.2); Monocytes Percent Auto 5.1 % (2-11); Neutrophils Absolute Auto 2.4 x10*3/uL (2.0-8.3); Neutrophils Percent Auto 56.7 % (45-73); Platelet Count 198 X10*3/uL (160-400); Red Blood Count 4.83 X10*6/uL (4.60-5.80); Red Cell Distribution Width 13.9 % (11.0-16.0); White Blood Count 4.3 X10*3/uL (4.8-10.8)
[2025-01-13 11:07] LABS: Alanine Aminotransferase 35 U/L (0-40); Albumin Level 3.8 g/dL (3.5-5.0); Alkaline Phosphatase 75 U/L (39-117); Anion Gap 9 (12-20); Aspartate Amino Transferase 35 U/L (5-37); Bilirubin Total 0.7 mg/dL (0.0-1.0); Blood Urea Nitrogen 7 mg/dL (9-16); Calcium 8.7 mg/dL (8.4-10.2); Carbon Dioxide 29 mmol/L (22-29); Chloride 107 mmol/L (96-108); Creatinine Clr Calc Pharmacy 132.1; Estimated Glomerular Filt Rate > 60; Glucose Random 92 mg/dL (60-115); Lipase 24 U/L (8-78); Potassium 4.5 mmol/L (3.3-5.1); Sodium 140 mmol/L (135-145)
--- OUTSIDE RECORDS SUMMARY | 2025-01-13 11:50 | XMS_ITS | Clinical Summary ---
Author Organization [employer] [facility] Address [address] [place] [address] [address] [place] [id number] Care Team Providers Care Stock Preparer Name Role Phone Unavailable Primary Care Provider Unavailabl e Allergies No known active allergies Medications docusate sodium (Colace) 100 MG capsule Take 100 mg by mouth 2 times daily. 4 Active polyethylene glycol, PEG, 3350 (Miralax) 17 g packet PLEASE SEE ATTACHED FOR DETAILED DIRECTIONS 4 Active Active Problems No known active problems Encounters Date Type Department Care Team Description 11/24/2024 3:00 PM EST Office Visit [facility] [address] [place] [address] DaniellaMartinezAlana haynes, DDS Dental caries (Primary Dx) 10/27/2024 1:00 PM EST Office Visit [facility] [address] [place] [address] Lili Jansen Encounter for dental examination (Primary Dx); Dental calculus; Dental caries; Dental plaque from Last 3 Months Social History Tobacco Use Types Packs/Day Years Used Date Smoking Tobacco: Never Smokeless Tobacco: Never Tobacco Cessation:Counseling Given: Not Answered Sex and Gender Information Value Date Recorded Sex Assigned at Male 09/18/2022 10:37 AM EDT Legal Sex Male 10:37 AM EDT Gender Identity Male 09/18/2022 10:37 AM EDT Sexual Orientation Straight 09/18/2022 10 :37 AM EDT Last Filed Vital Signs Vital Sign Reading Time Taken Comments Blood Pressure 120/80 11/24/2024 2:47 PM EST Pulse - - Temperature - - Respiratory Rate - - Oxygen Saturation - - Inhaled Oxygen Concentration - - Weight 82.6 kg (182 lb) 01/21/2021 12:03 AM EST Height 173 cm (5' 8.11 ) 01/21/2021 12:03 AM EST Body Mass Index 27.58 01/21/2021 12:03 AM EST Plan of Treatment Upcoming Encounters Date Type Department Care Team (Late st Contact Info) Description 05/25/2025 1:00 PM EDT Office Visit [facility] [address] [place] [address] Lili Jansen Health Maintenance Due Date Last Done Comments Chlamydia and Gonorrhea Screening 2002 Depression Screening 2002 HIV Screening 2002 SDOH Screening 2002 Alcohol/Substance Use Screening 2014 Family Planning (PISQ) 2017 Hepatitis C Screening 01/24/2020 Dental Oral Exam 04/28/2025 10/27/2024, 01/11/2021 Dental Prophylaxis 04/28/2025 10/27/2024, 01/11/2021 Dental X-Ray: Bitewings 10/28/2025 10/27/2024 Tobacco Screening 11/24/2025 11/24/2024 Dental X-Ray: Full Mouth 10/28/2027 10/27/2024 DTaP/Tdap/Td Vaccines (9 - Td or Tdap) 05/19/2033 05/19/2023, 01/18/2021, 08/27/2013, Additional history exists Zoster Vaccines (1 of 2) 01/24/2052 RSV Patients and Patients Aged 60 years or older (1 - 1-dose 75+ series) 2077 Hepatitis B Vaccines Completed 2002, 2002, 2002 Pneumococcal Vaccine: Pediatrics (0 to 5 Years) and At-Risk Patients (6 to 49) Years) Completed 03/09/2003, 2002, 2002 HIB Vaccines Completed 02/11/2004, 07/20, 2002, Additional history exists IPV Vaccines Completed 03/27/2007, 07/20, 2002, Additional history exists Hepatitis A Vaccines Completed 04/23/2009, 01/31/20 08 HPV Vaccines Completed 08/27/2013, 07/20, 08/10/2011 Meningococcal Vaccine Completed 09/02/2019, 013 COVID-19 Vaccine Completed 09/22/2024 Influenza Vaccine Completed 09/22/2024, , 07/31/2021, Additional history exists RSV under 20 months Aged Out No longe r eligible based on patient's age to complete this topic Rotavirus Vaccines Aged Out No longer eligible based on patient's age to complete this topic Procedures Procedure Name Priority Date/Time Associated Diagnosis Comments CASE PRESENTATION, DETAILED AND EXTENSIVE TREATMENT PLANNING Routine 11/24/2024 3:00 PM EST Dental caries 18 O RESIN-BASED COMPOSITE - 1 SURF, POSTERIOR Routine 11/24/2024 3:00 PM EST Dental caries 20 DO RESIN-BASED COMPOSITE - 2 SURF, POSTERIOR Routine 11/24/2024 3:00 PM EST Dental caries ORAL HYGIENE INSTRUCTIONS Routine 10/27/2024 1:00 PM EST Dental caries Dental plaque INTRAORAL - COMPLETE SERIES OF RADIOGRAPHIC IMAGES Routine 10/27/2024 1:00 PM EST PROPHYLAXIS - ADULT Routine 10/27/2024 1 :00 PM EST Dental caries Dental plaque CASE PRESENTATION, DETAILED AND EXTENSIVE TREATMENT PLANNING Routine 10/27/2024 1:00 PM EST PERIODIC ORAL EVALUATION - ESTABLISHED PATIENT Routine 10/27/2024 1:00 PM EST from Last 3 Months Insurance [facility]AL[facility] MEDICAID STAND [facility] ADULT
[2025-01-13 13:05] VITALS: BP 129/74; PULSE 68; RESP 16; TEMP 37.1; O2SAT 100
== END 2025-01-13 13:05 | disposition home or self-care (01) ==
PROVIDERS: Emergency Provider Emergency Medicine; PCP Physician Assistant Medical
DX: K59.00 Constipation, unspecified (principal); R10.32 Left lower quadrant pain; R10.2 Pelvic and perineal pain; F41.1 Generalized anxiety disorder; R10.84 Generalized abdominal pain; Z79.899 Other long term (current) drug therapy
CPT/HCPCS: 36415; 74018; 80053; 83690; 85025; 99282; 99283

== ENCOUNTER → 2025-01-13 10:15 | Outpatient (BNV) | payer OTHER, SELFPAY | PROVIDERS: Emergency Provider Emergency Medicine; PCP Physician Assistant Medical; Visit Provider Radiology Diagnostic Radiology | DX: R10.9 Unspecified abdominal pain (principal) | CPT/HCPCS: 74018 ==

== ENCOUNTER 2025-01-29 11:59 | Outpatient (AMB) | payer OTHER, SELFPAY ==
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
--- OUTSIDE RECORDS SUMMARY | 2025-01-29 15:25 | XMS_ITS | Clinical Summary ---
Author Organization [employer] Address [address] [place] [address] [address] [place] [address] Care Team Providers Care Assistant Manager Trainee Name Role Phone Unavailable Primary Care Provider Unavailabl e Allergies No known active allergies Medications docusate sodium (Colace) 100 MG capsule Take 100 mg by mouth 2 times daily. 4 Active polyethylene glycol, PEG, 3350 (Miralax) 17 g packet PLEASE SEE ATTACHED FOR DETAILED DIRECTIONS Active Active Problems No known active problems Encounters Date Type Department Care Team Description 11/24/2024 3:00 PM EST Office Visit [facility] [address] [place] [address] Edwards-Martinez, Alana, DDS Dental caries (Primary Dx) from Last 3 Months Social History Tobacco [...] Description 05/25/2025 1:00 PM EDT Office Visit [facility] [address] [place] [address] Lili Jansen Health Maintenance Due Date Last [...] Routine 11/24/2024 3:00 PM EST Dental caries PROPHYLAXIS - ADULT Routine 10/27/2024 1 :00 PM EST Dental caries Dental plaque INTRAORAL - COMPLETE SERIES OF RADIOGRAPHIC IMAGES Routine 10/27/2024 1:00 PM EST PERIODIC ORAL EVALUATION - ESTABLISHED PATIENT Routine 10/27/2024 1:00 PM EST from Last 3 Months or Most Recently Relevant to Health Maintenance Insurance [place]
== END 2025-01-29 17:48 | disposition home or self-care (01) ==
LOC: HO.HOP 11:59
PROVIDERS: PCP Physician Assistant Medical; Visit Provider Clinical Nurse Specialist Psychiatric/Mental Health
DX: F39 Unspecified mood [affective] disorder (principal)
CPT/HCPCS: 90792

== ENCOUNTER → 2025-01-29 11:59 | Outpatient (BNVA) | payer OTHER, SELFPAY | PROVIDERS: PCP Physician Assistant Medical; Visit Provider Clinical Nurse Specialist Psychiatric/Mental Health | DX: F90.9 Attention-deficit hyperactivity disorder, unspecified type (principal); F42.9 Obsessive-compulsive disorder, unspecified; Z71.89 Other specified counseling | CPT/HCPCS: 90792 ==

== ENCOUNTER 2025-09-25 22:56 | Emergency (ER) | payer OTHER, SELFPAY ==
--- NOTE | ~2025-09-25 | XR_ITS ---
CLINICAL HISTORY: SOB 1 view chest x-ray Comparison: None provided Findings: The lungs are clear. Normal size heart. No acute fracture. IMPRESSION: 1. No acute findings. This document has been electronically signed by: Rodrigo Quinteros MD on 09/26/2025 00:26:20
--- NOTE | 2025-09-25 23:01 | ECG_ITS ---
Test Reason : CHEST TIGHTNESS Blood Pressure : */* mmHG Vent. Rate : 69 BPM Atrial Rate : 69 BPM P-R Int : 134 ms QRS Dur : 82 ms QT Int : 360 ms P-R-T Axes : 56 90 57 degrees QTcB Int : 385 ms Normal sinus rhythm Rightward axis Early repolarization Borderline ECG No previous ECGs available Referred By: Amilcar White Electronically Signed By: Loi Johnson
[2025-09-25 23:02] VITALS: BP 150/73; PULSE 103; RESP 20; TEMP 36.8; O2SAT 100; BMI 26.6
--- NOTE | 2025-09-25 23:09 | ED_ITS ---
HPI - General Adult General Chief complaint: Dyspnea Stated complaint: Difficulty breathing Time Seen by Provider: 09/25/25 22:58 Source: patient Mode of arrival: ambulatory Limitations: no limitations History of Present Illness ED Provider: Amilcar KENNEDY HPI narrative: The patient is a 25-year-old male with a history of mood disorder, ADHD, oppositional defiant disorder, anxiety, and childhood asthma, presenting to the ED for evaluation of 2 months of shortness of breath described as waxing and waning episodes of feeling like he can not catch his full breath and fears he is going to . The patient denies associated chest pain, cough, hemoptysis, pleurisy, fever/chills, nausea, vomiting, diarrhea, abdominal pain, recent travel, lower extremity swelling, lower extremity pain, recent sick contacts, or recent trauma. The patient denies smoking history, denies alcohol or recreational drug use. The patient denies wheezing or stridor, reports he is not currently taking medications for his childhood diagnosis of asthma. The patient reports he currently follows with a therapist for his anxiety, but does not currently take any anxiolytics. The patient reports there have been intermittent times over the past 2 months where he has needed to choose between eating or breathing to avoid choking, patient denies actual choking episodes but reports he is fearful he may choke. The patient reports he is nervous he has an undiagnosed disorder which will cause him to suffer a sudden , patient reports he currently lives in a basement and is unsure if there is radon poisoning, mold exposure, asbestos exposure, or exposure to insulation. The patient reports he also suffers from pornography/masturbation addiction, and reports his shortness of breath increases after masturbation. The patient is unable to identify a sudden change in his symptoms over the past 2 months which prompted ED evaluation this evening. Related Data Previous Rx's ?Medication ?Instructions ?Recorded docusate sodium 100 mg capsule 100 mg PO BID #30 caps 09/12/24 (Colace) docusate sodium 100 mg capsule 100 mg PO DAILY constip ation #30 11/03/24 (Colace) caps polyethylene glycol 3350 17 17 g PO DAILY constipation #238 11/03/24 gram/dose oral powder (Miralax) grams docusate sodium 100 mg capsule 100 mg PO BID #14 caps 01/13/25 (Colace) olanzapine 10 mg tablet 10 mg PO .COMPLEX #30 tabs 0 01/29/25 Allergies Allergy/AdvReac Type Severity Reaction Status Date / Time No Known Allergies (No Known Allergy Verified 09/25/25 23:05 Allergies*) Review of Systems 2 Review of Systems: Yes all other systems are reviewed and are negative PMFSH Past Medical History Medical History Oppositional defiant disorder Annual physical exam Asthma ADHD Surgical History No pertinent past surgical history Family History Family History Mother No problems noted. Other Mental health disorder Social History Social History Household Members: Family Housing: Apartment Alcohol intake: never Patient Tobacco Use Status: Never used Tobacco Smoked in Last 30 Days: No e-Cigarette/Vaping Use: Never Used Second Hand Smoke Exposure: No Use of substances other than those prescribed or required for medical reasons: No Advance Directives: No Advance Directives Information Provided: No Do you have a plan to hurt others: No Plan service: No Current occupational status: disabled Cognitive needs: No Hearing needs: No Vision needs: No Physical Exam ED Vital Signs: Vital Signs - 24 hr 09/25/25 23:02 09/26/25 00:53 Temperature 98.3 F Pulse Rate 103 H 71 Respiratory Rate 20 18 Blood Pressure 150/73 H 100/45 L Pulse Oximetry 100 98 Oxygen Delivery Method Room Air Room Air BMI result Body Mass Index 26.6 CONSTITUTIONAL: The patient appears non-toxic, well nourished and in no acute distress. Vital signs as documented. HEAD: Atraumatic, normocephalic. EYES: EOMs grossly intact, pupils equal, conjunctiva clear, no exudate. ENT: Nares patent, no discharge. Airway patent, no audible stridor, visible mucosa is pink and moist without noted lesions. NECK: Trachea is midline, no obvious masses or gross abnormalities. CHEST: Symmetric movement, normal appearance. LUNGS: LS present and CTAB, no w/r/r. Non-labored work of breathing. CARDIAC: Regular Rhythm, S1/S2 appreciated, no murmurs, rubs or gallops. ABDOMEN: Abdomen soft and non-tender x4 quadrants, no palpable masses or organomegaly. : Deferred. EXTREMITIES: Normal tone, moves all extremities spontaneously without reported pain. No obvious acute injury or deformity noted. NEURO: Alert and oriented x3, CN II-XII appear grossly intact. Cerebellar Functioning grossly intact. No obvious sensory or motor deficits. Speech clear and appropriate. PSYCH: Anxious affect, but otherwise with appropriate eye contact, fluid speech, with appropriate response to questioning. No reported suicidality or homicidality. SKIN: Warm, dry, color appropriate, normal turgor. No rashes noted. Medical Decision Making Medical Decision Making MDM Narrative: 11:36 PM 09/25/2025 (Skip KENNEDY): The patient is a 25-year-old male with a history of mood disorder, ADHD, oppositional defiant disorder, anxiety, and childhood asthma, presenting to the ED for evaluation of 2 months of shortness of breath described as waxing and waning episodes of feeling like he can not catch his full breath and fears he is going to . The patient denies associated chest pain, cough, hemoptysis, pleurisy, fever/chills, nausea, vomiting, diarrhea, abdominal pain, recent travel, lower extremity swelling, lower extremity pain, recent sick contacts, or recent trauma. The patient denies smoking history, denies alcohol or recreational drug use. The patient denies wheezing or stridor, reports he is not currently taking medications for his childhood diagnosis of asthma. The patient reports he currently follows with a therapist for his anxiety, but does not currently take any anxiolytics. The patient reports there have been intermittent times over the past 2 months where he has needed to choose between eating or breathing to avoid choking, patient denies actual choking episodes but reports he is fearful he may choke. The patient reports he is nervous he has an undiagnosed disorder which will cause him to suffer a sudden , patient reports he currently lives in a basement and is unsure if there is radon poisoning, mold exposure, asbestos exposure, or exposure to insulation. The patient reports he also suffers from pornography/masturbation addiction, and reports his shortness of breath increases after masturbation. The patient is unable to identify a sudden change in his symptoms over the past 2 months which prompted ED evaluation this evening. On exam the patient appears severely anxious, but otherwise in no acute distress, patient was borderline tachycardic during triage, however during this provider's exam patient's heart rate is in the 70s, no hypoxia or fever. On exam patient's lungs are clear to auscultation bilaterally, no adventitious lung sounds. No other acute findings. The patient's EKG is nonischemic, CBC shows no leukocytosis or significant anemia, chemistries, viral swabs, and troponin are pending. Chest x-ray is pending. Patient is PERC negative. Patient's presentation is most consistent with anxiety with somatization disorder, however we will await viral swabs, chest x-ray, and remainder of laboratory workup prior to making this diagnosis. 1:05 AM 09/26/2025 (Skip KENNEDY): The patient's laboratory evaluation has resulted, patient's viral swabs are negative for COVID, influenza, RSV. The patient's chemistries demonstrate no electrolyte abnormality or MARTÍNEZ, no LFT abnormality. Patient's troponin is negative. The patient's chest x-ray has resulted and shows no focal consolidation. Patient is likely suffering from anxiety with somatization disorder, patient will be discharged with supportive care and outpatient follow up with PCP. Admission/Observation Consideration of admission/observation: Escalation of care including admission/observation considered Lab Data MDM Lab Attestation statement: I reviewed the patient's lab results. 09/25/25 23:15 09/25/25 23:15 Labs: Lab Results 09/25/25 09/25/25 Range/Units 23:15 23:17 WBC 6.3 (4.8-10.8) X10*3/uL RBC 4.98 (4.60-5.80) X10*6/uL Hgb 13.1 L (14.0-18.0) g/dl Hct 39.2 L (42.0-52.0) % MCV 78.7 L (80.0-98.0) fL MCH 26.3 L (27.0-33.0) pg MCHC 33.4 (31.0-36.0) g/dl RDW 13.9 (11.0-16.0) % Plt Count 216 (160-400) X10*3/uL MPV 11.4 (9.4-12.4) fL Immature Gran % (Auto) 0.3 (0.0-0.4) % Neut % (Auto) 53.4 (45-73) % Lymph % (Auto) 36.4 (20-40) % [place] % (Auto) 8.6 (2-11) % Eos % (Auto) 1.0 (0-4) % Baso % (Auto) 0.3 (0-2) % Lymph # (Auto) 2.3 (1.2-4.9) X10*3/uL [place] # (Auto) 0.5 (0.1-1.2) X10*3/uL Eos # (Auto) 0.1 (0.0-0.4) X10*3/uL Baso # (Auto) 0.0 (0.0-0.2) X10*3/uL Abs Immat Gran (auto) 0.02 (0.00-0.03) X10*3/uL Absolute Neuts (auto) 3.4 (2.0-8.3) x10*3/uL Absolute Nucleated RBC 0.000 (0.0-0.012) X10*3/uL Nucleated RBC % (auto) 0.0 (0.0-0.2) /100WBC Sodium 141 (135-145) mmol/L Potassium 3.5 D (3.3-5.1) mmol/L Chloride 108 (96-108) mmol/L Carbon Dioxide 21 L (22-29) mmol/L Anion Gap 16 (12-20) BUN 16 (9-16) mg/dL Creatinine 1.14 (0.5-1.4) mg/dL Estim Creat Clear Calc 94.2 Estimated GFR > 60 Random Glucose 107 (60-115) mg/dL Calcium 9.2 (8.4-10.2) mg/dL Total Bilirubin 1.0 (0.0-1.0) mg/dL AST 32 (5-37) U/L ALT 26 (0-40) U/L Alkaline Phosphatase 97 (39-117) U/L Troponin I High Sens < 2.7 (<3.5-35.0) ng/L Total Protein 6.7 (6.5-8.0) g/dL Albumin 4.5 (3.5-5.0) g/dL Influenza Type A (PCR) NEGATIVE (Negative) Influenza Type B (PCR) NEGATIVE (Negative) RSV RNA Qual (PCR) NEGATIVE (Negative) SARS-CoV-2 RNA (RT-PCR) NEGATIVE (Negative) Independent Interpretation I performed an independent interpretation of an: EKG ( EKG shows sinus rhythm with a rate of 69, no evidence of acute ischemia, no ST elevation, no ectopy. QTC 385, no old for comparison. ) Radiology Impression Discussion of test interpretation with radiology: I have reviewed the radiologist's reading. Radiologist Impression: CLINICAL HISTORY: SOB 1 view chest x-ray Comparison: None provided Findings: The lungs are clear. Normal size heart. No acute fracture. IMPRESSION: 1. No acute findings. This document has been electronically signed by: Rodrigo Quinteros MD on 09/26/2025 00:26:20 External Record Review External record reviewed: Outpatient record and Prior outpatient labs Discharge Plan Discharge Clinical Impression: Anxiety with somatization Patient Disposition: Home, Self-Care Instructions: Anxiety (ED) Additional Instructions: Thank you for choosing [facility]'s Emergency Department for your care today. Thankfully your laboratory evaluation, EKG, chest x-ray, viral swabs, vital signs, and exam today are all reassuring. There is no evidence of any acute cardiac, pulmonary, infectious, metabolic, anemic, or other dangerous cause for your sensation of shortness of breath. At this time there is no indication for admission to the hospital or continued ED observation, and it is safe to discharge you home. Your chest x-ray shows no pneumonia, mass, or other abnormality, your viral swabs are negative for COVID, RSV, and influenza. Your vital signs showed no low oxygen level or increased respiratory rate, and your lung sounds are clear on exam. At this time there does not appear to be any dangerous cause for your shortness of breath over the past 2 months. In the setting of a reassuring workup in the ED today, it is possible your symptoms are your body's expression of your anxiety/stress, a condition known as somatization disorder. Please stay well hydrated and get plenty of rest. Please follow up with the your therapist for continued treatment of your anxiety, and consideration of anxiety reducing medication. Please also follow up with your primary care physician for re-evaluation, additional management of your symptoms, and continued preventative care. If you do not have a primary care physician, please call the [facility] at [phone] to establish a new primary care physician. While waiting to establish your new primary care physician, you can call our Walk-in Care [facility] at [phone] for non-emergency needs. Please return to the emergency department if you develop a severe or sudden change in your symptoms, a fever over 100.4 that does not improve with Tylenol or Ibuprofen, recurrent vomiting, or any other new or worsening symptoms or concerns. Prescriptions: No Action docusate sodium [Colace] 100 mg capsule 100 mg PO BID Qty: 30 0RF docusate sodium [Colace] 100 mg capsule 100 mg PO BID Qty: 14 0RF docusate sodium [Colace] 100 mg capsule 100 mg PO DAILY Qty: 30 0RF polyethylene glycol 3350 [Miralax] 17 gram/dose powder 17 g PO DAILY Qty: 238 0RF olanzapine 10 mg tablet 10 mg PO .COMPLEX Qty: 30 1RF Rx Instructions: 10 mg orally Take 1/2 tab at bedtime for seven days then increase to one tablet daily at bedtiime; Referrals: Summer Pryor PA-C [Primary Care Provider, Internal Medicine] Clinical Impression: Anxiety with somatization Print Language: Wallisian
[2025-09-25 23:20] LABS: MANUAL DIFF FLAG NO
[2025-09-25 23:21] LABS: Hematocrit 39.2 % (42.0-52.0); Hemoglobin 13.1 g/dl (14.0-18.0); Imm Gran Abs Auto 0.02 X10*3/uL (0.00-0.03); Imm Gran Pct Auto 0.3 % (0.0-0.4); Lymphocytes Absolute Auto 2.3 X10*3/uL (1.2-4.9); Mean Corpuscular HGB Conc 33.4 g/dl (31.0-36.0); Mean Corpuscular Hemoglobin 26.3 pg (27.0-33.0); Mean Corpuscular Volume 78.7 fL (80.0-98.0); NRBC Abs Auto 0.000 X10*3/uL (0.0-0.012); NRBC Pct Auto 0.0 /100WBC (0.0-0.2); Platelet Count 216 X10*3/uL (160-400); Red Blood Count 4.98 X10*6/uL (4.60-5.80); White Blood Count 6.3 X10*3/uL (4.8-10.8)
[2025-09-25 23:41] LABS: Alanine Aminotransferase 26 U/L (0-40); Albumin Level 4.5 g/dL (3.5-5.0); Alkaline Phosphatase 97 U/L (39-117); Anion Gap 16 (12-20); Aspartate Amino Transferase 32 U/L (5-37); Blood Urea Nitrogen 16 mg/dL (9-16); Calcium 9.2 mg/dL (8.4-10.2); Carbon Dioxide 21 mmol/L (22-29); Chloride 108 mmol/L (96-108); Creatinine Clr Calc Pharmacy 94.2; Estimated Glomerular Filt Rate > 60; Potassium 3.5 mmol/L (3.3-5.1); Sodium 141 mmol/L (135-145); Total Protein 6.7 g/dL (6.5-8.0)
[2025-09-25 23:43] LABS: Troponin-I High Sensitivity < 2.7 ng/L (<3.5-35.0)
[2025-09-25 23:58] LABS: Resp Syncy Virus RNA Qual PCR NEGATIVE (Negative); SARS COV2 PCR INHOUSE NEGATIVE (Negative)
--- OUTSIDE RECORDS SUMMARY | 2025-09-26 | XMS_ITS | Clinical Summary ---
Author Organization [facility] Address [address] [place] [address] [address] [place] [address] Care Team Providers Care Station Engineer Chief Name Role Phone Unavailable Primary Care Provider Unavailabl e Allergies No known active allergies Medications docusate sodium (Colace) 100 MG capsule Take 100 mg by mouth 2 times daily. 4 Active polyethylene glycol, PEG, 3350 (Miralax) 17 g packet PLEASE SEE ATTACHED FOR DETAILED DIRECTIONS 4 Active Active Problems No known active problems Social History Tobacco Use Types Packs/Day Years [...] Sign Reading Time Taken Comments Blood Pressure 112/66 05/25/2025 1:08 PM EDT Pulse 76 05/25/2025 1:08 PM EDT Temperature - - Respiratory Rate - - Oxygen Saturation - - Inhaled Oxygen Concentration - - Weight 82.6 kg (182 lb) 01/21/2021 12:03 AM EST Height 173 cm (5' 8.11 ) 01/21/2021 12:03 AM EST Body Mass Index 27.58 01/21/2021 12:03 AM EST Plan of Treatment Upcoming Encounters Date Type Department Care Team (Late st Contact Info) Description 12/10/2025 9:30 AM EST Office Visit [facility] [address] [place] [address] Lili Jansen Health Maintenance Due Date Last Done Comments Chlamydia and Gonorrhea Screening 2002 Depression Screening 2002 HIV Screening 2002 SDOH Screening 2002 Disability Screening 2002 Alcohol/Substance Use Screening 2014 Family Planning (PISQ) 2017 Meningococcal B Vaccine (1 of 2 - Standard) 2018 Hepatitis C Screening 01/24/2020 Influenza Vaccine (#1) 2025 , 11/23/2023, 07/31/2021, Additional history exists Dental X-Ray: Bitewings 10/28/2025 10/27/2024 Dental Oral Exam 11/26/2025 05/25/2025, 07/2024, 01/11/2021 Dental Prophylaxis 11/26/2025 05/25/2025, 1 12/28/2023, 01/11/2021 Tobacco Screening 05/25/2026 05/25/2025 Dental X-Ray: Full Mouth 10/28/2027 10/27/2024 DTaP/Tdap/Td Vaccines (9 - Td or Tdap) 05/19/2033 05/19/2023, 01/18/2021, 08/27/2013, Additional history exists Zoster Vaccines (1 of 2) 01/24/2052 RSV Patients and Patients Aged 60 years or older (1 - 1-dose 75+ series) 2077 Hepatitis B Vaccines Completed 2002, 2002, 2002 Pneumococcal Vaccine: Pediatrics (0 to 5 Years) and At-Risk Patients (6 to 49) Years Completed 03/09/2003, 2002, 2002 HIB Vaccines Completed 02/11/2004, 07/20, 2002, Additional history exists IPV Vaccines Completed 03/27/2007, 07/20, 2002, Additional history exists Hepatitis A Vaccines Completed 04/23/2009, 01/31/20 08 HPV Vaccines Completed 08/27/2013, 07/20, 08/10/2011 Meningococcal Vaccine Completed 09/02/2019, 013 COVID-19 Vaccine Completed 09/22/2024 RSV under 20 months Aged Out No longe r eligible based on patient's age to complete this topic Rotavirus Vaccines Aged Out No longer eligible based on patient's age to complete this topic Procedures Procedure Name Priority Date/Time Associated Diagnosis Comments PROPHYLAXIS - ADULT Routine 05/25/2025 1 :00 PM EDT PERIODIC ORAL EVALUATION - ESTABLISHED PATIENT Routine 05/25/2025 1:00 PM EDT INTRAORAL - COMPLETE SERIES OF RADIOGRAPHIC IMAGES Routine 10/27/2024 1:00 PM EST from Last 3 Months or Most Recently Relevant to Health Maintenance Insurance D[place]AL-[place] STAND ADULT DENTAL-[facility] MEDICAID STAND ADULT
[2025-09-26 00:53] VITALS: BP 100/45; PULSE 71; RESP 18; O2SAT 98
[2025-09-26 01:48] VITALS: BP 108/57; PULSE 77; RESP 13; TEMP 36.7; O2SAT 100
== END 2025-09-26 01:58 | disposition home or self-care (01) ==
PROVIDERS: Physician Assistant; Emergency Provider Emergency Medicine; PCP Physician Assistant Medical
DX: F41.9 Anxiety disorder, unspecified (principal); F45.9 Somatoform disorder, unspecified; R06.02 Shortness of breath; R07.89 Other chest pain; R00.0 Tachycardia, unspecified; Z03.818 Encounter for observation for suspected exposure to other biological agents ruled out
CPT/HCPCS: 36415; 71045; 80053; 84484; 85025; 87637; 93005; 99284

== ENCOUNTER → 2025-09-25 23:01 | Outpatient (BNV) | payer OTHER, SELFPAY | PROVIDERS: Emergency Provider Emergency Medicine; PCP Physician Assistant Medical; Visit Provider Internal Medicine Cardiovascular Disease | DX: R07.89 Other chest pain (principal) | CPT/HCPCS: 93010 ==

== ENCOUNTER → 2025-09-25 23:47 | Outpatient (BNV) | payer OTHER, SELFPAY | PROVIDERS: Emergency Provider Emergency Medicine; PCP Physician Assistant Medical; Visit Provider Radiology Diagnostic Radiology | DX: R06.02 Shortness of breath (principal) | CPT/HCPCS: 71045 ==